=== PATIENT | female | born 1950 | race Caucasian/White ===

== ENCOUNTER → 2017-08-19 10:54 | Outpatient (CLI) | payer BC, SELFPAY ==
--- NOTE | 2017-08-19 10:57 | HPBI_ITS ---
MAMMOGRAPHY - BILATERAL SCREENING REASON FOR EXAM: Female, 67 years old. Routine annual screening examination. PERTINENT HISTORY: Non-contributory. TECHNIQUE: Digital bilateral breast janey (3D mammographic acquisition) in the CC and MLO projections. 2-D mediolateral oblique (MLO) and craniocaudad (CC) views of both breasts were obtained. CAD: Full Field Digital Mammography with Computer Added Detection was performed. COMPARISON: Comparison is made with prior outside examination dated March 09, 2016. FINDINGS: Breast Composition: There are scattered areas of fibroglandular density. There are no dominant masses or suspicious calcifications. Stable appearance of the bilateral axillary lymph nodes. No other significant abnormalities are identified. There has been no significant change since the prior study. HPBI/SCREENING MAMM (CAD), BILAT IMPRESSION: Stable bilateral screening mammogram. Yearly follow-up mammogram recommended. (A) ASSESSMENT CATEGORY: BIRADS Category 2: Benign. A letter regarding these results will be sent to the patient by the facility within 30 days. Approximately 10% of breast cancers are not detected by mammography. A normal mammogram should not delay biopsy of a clinically suspicious abnormality. [id number] Electronically Signed: Kofi Santana MD at 12:37 EST Tel [phone], Service support ,
== END ==
PROVIDERS: Family Provider Internal Medicine; PCP Internal Medicine; Visit Provider Internal Medicine
DX: Z12.31 Encounter for screening mammogram for malignant neoplasm of breast (principal)
CPT/HCPCS: 77063; 77067

== ENCOUNTER → 2017-10-20 13:42 | Outpatient (CLI) | payer BC, SELFPAY ==
--- NOTE | 2017-10-20 13:45 | RAD_ITS ---
STUDY: X-RAY - RIGHT KNEE REASON FOR EXAM: Female, 67 years old. Hip and knee pain TECHNIQUE: 4 weightbearing view(s) of the knee. COMPARISON: None. FINDINGS: Normal visualized distal femur. Normal visualized proximal tibia and fibula. Normal proximal tibiofibular articulation. Spurring along the tibial spine and left medial femoral notch. There is mild degenerative arthrosis of the medial femorotibial compartment. There is moderate degenerative arthrosis of the lateral femorotibial compartment with moderate joint space narrowing. There is mild degenerative arthrosis of the patellofemoral articulation. There is a soft tissue prominence in the suprapatellar region suggesting a small volume joint effusion. The soft tissue structures are unremarkable. RAD/Knee 4 or More Views IMPRESSION: Tricompartmental degenerative changes most pronounced lateral femoral tibial compartment. Mild effusion. Electronically Signed: Amada Mejia MD at 7:41 EDT , Service support ,
--- NOTE | 2017-10-20 13:45 | RAD_ITS ---
STUDY: X-RAY - PELVIS AND RIGHT HIP REASON FOR EXAM: Female, 67 years old. Knee and hip pain TECHNIQUE: Radiological exam, hip, unilateral, with pelvis when performed; 2 or 3 views. COMPARISON: None. FINDINGS: There is a non-specific bowel gas pattern. There are multiple calcified phleboliths. There is mild narrowing with cortical sclerosis and osteophyte formation of the sacroiliac joint consistent with degenerative osteoarthritic changes. Normal bilateral superior and inferior pubic rami. There are mild degenerative changes of the pubic symphysis with articular narrowing and sclerosis. Normal bilateral ischial tuberosities. Normal visualized femoral head. Normal acetabulum. There is mild articular joint space narrowing of the hip. RAD/Hip 2-3 Views with Pelvis IMPRESSION: Mild degenerative changes. Electronically Signed: Amada Mejia MD at 7:47 EDT , Service support ,
== END ==
PROVIDERS: Family Provider Internal Medicine; PCP Internal Medicine; Visit Provider Internal Medicine
DX: M25.551 Pain in right hip (principal); M25.561 Pain in right knee; G89.29 Other chronic pain
CPT/HCPCS: 73502; 73564

== ENCOUNTER 2017-12-05 12:00 | Outpatient (RCR) | payer BC, SELFPAY ==
--- NOTE | 2017-10-24 08:51 | HP.PTEVAL_ITS ---
Patient's Visit Information ANTONELLA DILLON is a 67 year old F referred to Physical Therapy by Vy Bland with a diagnosis of R hip pain, R knee pain. Date of Evaluation: 10/21/17 Physical Therapist: Max Crouch - Visit Plan Frequency: 2x /Week Duration: 4 Weeks Plan: Start with HS stretching, Hip flexor stretching, piriformis stretching, quad activitation- progressing to strengthening. Strengthen glute med and hip ER to reduce tibial IR positioning. May use modalities to reduce symptoms. - Subjective Subjective: Pt. is here today for her initial evaluation with diagnosis of R hip and knee pain. Pt. reports her symptoms today are better than they have been. Pt. reports having increased pain with walking, stairs, kneeling, exercise. Pt. has decreased pain with sitting. Pt. is no longer having much hip pain. Pt. denies numbness or tingling. She reports that her leg does not give out on her either. Pt. reports increased difficulty with playing with her grandchildren as well. Pt. does have increased difficutly sleeping and will wake her up at night. She did have recent xray of hip and knee, mild degenerative changes in hip, but had degenerative chagnes in all 3 compartments of R knee (lateral tibial femoral being worse, moderate changes). Pt. is hopeful to reduce symptoms to get back to recreational walking and playing with grandchildren with increased tolerance. - Pain R knee Pain Intensity (Out of 10): 2 Pain Intensity Range: 1, 6 R hip Pain Intensity (Out of 10): 0 Pain Intensity Range: 0, 4 - Objective POSTURE: Pt. has normal iliac crest height bilaterally. Pt. has increased R knee valgus positioning. Pt. has bilateral tibial IR as well. PALPATION: Pt. has mild pain with palpation of R greater trochanter and TFL/glute med regions. Pt. has worse pain at lateral anterior joint line of knee and posterior popliteal fossa as well. NEUROLOGICAL: Pt. has normal sensation to light and sharp touch bilaterally. Pt. has 2+ achilles and patellar DTR bilaterally. Pt. has no visible weakness or LOB with heel/toe raises. ROM: R knee 0-3-128deg mild icnrease NW with ext + overpress and knee flexion + over pressure. R hip- flexion 120deg, abd 445deg, ext 10deg increase hip flexor stretch, ER 45deg stretch, IR 30deg. L hip/knee all with in normal ROM withotu sumptoms. MMT: RLE- ankle 5/5 throughout; knee- ext 4+/5 increase NW, flexion 4+/5 increase NW ; hip- flexion 4+/5 NE, abd 4/5 NE, ext 4/5 NE. LLE- ankle/knee 5/5 throughout NE; hip- flexion 4+/5 NE, abd 4/5 NE, ext 4/5 NE. GAIT: Pt. ambulates with decreased step length bilatearlly. Pt. has normal initial contact, but swing phase and reduced R knee flexion with increased hip circumduction. Pt. has increased R knee valgus positioning during stance phase as well. STAIRS: Increased pain with R load, worse with descending. Pt. prefers to complete step to pattern with loading LLE only. - Special Tests R Hip Scour: Negative R Hip YOGI - Intraarticular Pathology: Negative R Hip FADDIR - Labrum: Negative R Hip Vipul - IT Band: Negative R Knee Segundo - Meniscus: Positive R Knee Disco Test - Meniscus: Positive R Knee Uvaldo - ACL: Negative R Knee Posterior Drawer - PCL: Negative R Knee Valgus - MCL: Negative R Knee Varus - LCL: Negative R Knee Patellar Apprehension - PFS: Negative R Knee Patellar Grind - PFS: Negative R Knee Medial Patellar Plica - Plica Syndrome: Negative - Goals Goal 1:: Pt. to be I with HEP. Goal Time Frame: 4-6 Weeks Goal 2:: Pt. to have increased HS and hip flexor length by 25% to reduce stress at hip and knee. Goal Time Frame: 4-6 Weeks Goal 3:: Pt. to ambulate with normalized gait pattern with 0-2/10 pain allowing for increased quality of life. Goal Time Frame: 4-6 Weeks Goal 4:: Pt. to negotiate steps with 1 HR with reciprocal pattern with 0-2/10 pain allowing for increased independence in home and community. Goal Time Frame: 4-6 Weeks Goal 5:: Pt. to have increased RLE strength by 1/2 grade of effected musculature to reduce stress applied to R knee with all functional moblity. Goal Time Frame: 4-6 Weeks Goal 6:: Pt. to sleep throughout the night with 0-2/10 pain allowing for increased quality of life. Goal Time Frame: 4-6 Weeks - Rehabilitation Potential Physical Therapy Diagnosis: Pt. has signs and symptoms consistent with R knee pain that is effecting her mobility causing antalgic gait patterns. Her hip symptoms appear to be caused by this gait abnormalities. Pt. has a greater R knee valgus positioning that increases with stance phase and stairs. Pt. most likely has OA throughout her knee, but can not completely rule on lateral degenerative meniscal tear at this point in time. Pt. would benefit from Pt to increased RLE strength, RLE ROM and progress tolerance to all functional mobility. Rehabilitation Potential: Fair - Anticipated Interventions Patient/Client Instruction: Educate patient on: Condition, Plan of Care, Risk Factors, Benefits of Fitness Program For the Purpose of:: To foster healthy habits, To improve decision making, To facilitate caregiver knowledge, To improve self management, To prevent re-injury , To improve ability to perform tasks related to life management, To improve tolerance to ADL's Therapeutic Exercise to Include: Strength training, Power training, Endurance training, Balance training, Postural training, Flexibilty training, Passive ROM , Active ROM, Dynamic Lumbar Stabilization For the Purpose of:: To decrease pain, To decrease swelling/inflammation, To increase ROM, To improve nutrient delivery to tissue, To increase oxygenation perfusion, To improve muscle performance and motor function, To improve health of tissue, To decrease soft tissue restriction, To increase flexibility/ROM, To improve endurance, To improve balance Manual Therapy Techniques to Include: Mobilization, Passive ROM, Functional dry needling, Soft tissue mobilization For the Purpose of:: To decrease pain, To decrease swelling/inflammation, To increase ROM, To improve nutrient delivery to tissue, To increase oxygenation perfusion, To improve muscle performance and motor function, To improve health of tissue, To decrease soft tissue restriction, To increase flexibility/ROM IF ES: Yes Cryotherapy (ice pack, ice massage): Yes Ultrasound (thermal/non thermal): Yes For the Purpose of:: To decrease pain, To decrease swelling/inflammation, To increase ROM, To improve nutrient delivery to tissue, To increase oxygenation perfusion, To improve muscle performance and motor function Thank you for the opportunity to evaluate your patient. For Medicare and Medicare HMO plans, please review the plan of care and approve it. It will need to be FAXED BACK to us at [phone] for Medicare purposes. Please let me know if there are questions or concerns regarding this plan of care. Physician Signature: Date:
--- NOTE | 2017-12-05 12:00 | DT_ITS ---
This patient was seen during an EMR downtime December 05, 2017 - December 12, 2017. This patient may have a combination of paper and electronic documentation or all paper documentation. All documentation is viewable within the e-chart portion of [facility] for each patient visit.
--- NOTE | 2017-12-26 14:26 | HP.PTDCSUM_ITS ---
HP - PT D/C Summary It has been my pleasure to treat ANTONELLA DILLON under orders from Vy Bland , for the diagnosis of R hip pain, R knee pain for a total of 7 visit(s). Discharge Date: 12/07/17 Please see the following information for a summary of their discharge status. - Subjective Subjective: Pt. reports beign 80% better overall. She still has good days and some sore days. She is HEP compliant. No pain currently. - Pain R knee Pain Intensity (Out of 10): 0 R hip Pain Intensity (Out of 10): 0 Lumbar spine Pain Intensity (Out of 10): 0 - Overall Improvement % Improvement: 80 - Objective Objective/Function: Pt. continues to present with increased R hip IR and R knee valgus with standing and ambulation. ROM- R hip- with in full motion no increase in symptoms. R knee- 0-0-130deg no pain. MMT- R ankle 5/5 throughout; knee- ext 5/5, flexion 5-/5; hip- flexion 4+/5, abd 4+/5, ext 4+/5. Stairs- reciprocal pattern no issues. Due to electronic downtime procedure, the information from December 05 through the December 11 was electronically scanned into the medical record. - Goals Goal 1:: Pt. to be I with HEP. Goal 2:: Pt. to have increased HS and hip flexor length by 25% to reduce stress at hip and knee. Goal 3:: Pt. to ambulate with normalized gait pattern with 0-2/10 pain allowing for increased quality of life. Goal 4:: Pt. to negotiate steps with 1 HR with reciprocal pattern with 0-2/10 pain allowing for increased independence in home and community. Goal 5:: Pt. to have increased RLE strength by 1/2 grade of effected musculature to reduce stress applied to R knee with all functional moblity. Goal 6:: Pt. to sleep throughout the night with 0-2/10 pain allowing for increased quality of life. - Plan Plan: Pt. will be DC to HEP at this point in time. - D/C Information Discharge Comments: Pt. was treated with ROM, stretching and strengthening. PT. has progressed well with PT. PT. has overall decreased symptoms, but does have days where it still bothers her. Pt. has increased R hip IR and valgus formations, that worsen with standing and gait. Pt. is independent with her HEP and will be DC to her HEP this date. If there are questions or concerns regarding this patient's physical therapy, please feel free to call me at [phone]. Thank you for the referral of this patient. Sincerely, Max Crouch
== END 2017-12-05 19:00 | disposition home or self-care (01) ==
LOC: PT 12:00
PROVIDERS: Family Provider Internal Medicine; PCP Internal Medicine; Visit Provider Internal Medicine
DX: M25.551 Pain in right hip (principal); M25.561 Pain in right knee; M70.51 Other bursitis of knee, right knee
CPT/HCPCS: 97110; 97162

== ENCOUNTER → 2018-06-21 16:14 | Outpatient (CLI) | payer BC, SELFPAY | PROVIDERS: Family Provider Internal Medicine; PCP Internal Medicine; Referring Provider Internal Medicine Gastroenterology; Visit Provider Internal Medicine Gastroenterology | DX: K51.90 Ulcerative colitis, unspecified, without complications (principal); K58.0 Irritable bowel syndrome with diarrhea | CPT/HCPCS: 87177; 87209 ==

== ENCOUNTER → 2018-09-15 12:02 | Outpatient (CLI) | payer BC, SELFPAY ==
--- NOTE | 2018-09-15 12:05 | BI_ITS ---
MAMMOGRAPHY - BILATERAL SCREENING REASON FOR EXAM: Female, 68 years old. Routine annual screening examination. PERTINENT HISTORY: Non-contributory. TECHNIQUE: Digital bilateral breast janey (3D mammographic acquisition) in the CC and MLO projections. 2-D mediolateral oblique (MLO) and craniocaudad (CC) views of both breasts were obtained. CAD: Full Field Digital Mammography with Computer Added Detection was performed. COMPARISON: Comparison is made with prior study dated August 19, 2017. FINDINGS: Breast Composition: There are scattered areas of fibroglandular density. There are no dominant masses or suspicious calcifications. There is a 6.4 mm x 5.5 mm well-defined nodule in the slightly inferior medial portion of the left breast. This most likely represents a small cyst. Correlation with ultrasound is recommended. Stable fat-containing bilateral axillary lymph nodes. No other significant abnormalities are identified. BI/SCREENING MAMM (CAD), BILAT IMPRESSION: 6.4 mm x 5.5 mm well-defined nodule in the slightly inferior medial portion of the left breast as described. Correlation with ultrasound is recommended. ASSESSMENT CATEGORY: BIRADS Category 0: Incomplete. Need additional imaging evaluation. A letter regarding these results will be sent to the patient by the facility within 30 days. Approximately 10% of breast cancers are not detected by mammography. A normal mammogram should not delay biopsy of a clinically suspicious abnormality. [id number] Electronically Signed: Kofi Santana, at 14:17 EDT , Service support ,
[2018-09-15 13:42] LABS: Hematocrit 45.2 % (37-47); Hemoglobin 14.4 g/dl (12.0-15.0); Mean Corp Hgb Conc 31.9 g/gl (32-36); Mean Corpuscular Volume 87.9 fL (81-99); Mean Platelet Vol. 9.7 fl (6.2-12.0); Platelet Count 245 K/mm3 (150-450); RBC Distribution Width CV 12.8 % (11.6-14.6); RBC Distribution Width SD 40.9 fl (35.1-43.9); Red Blood Count 5.14 M/mm3 (4.2-5.4); White Blood Count 7.8 K/mm3 (4.4-11.0)
[2018-09-15 13:43] LABS: Scan Indicated on CBC? Y/N NO
[2018-09-15 14:05] LABS: CRP 9.62 mg/L (0.0-3.0)
== END ==
PROVIDERS: Internal Medicine Gastroenterology; Family Provider Internal Medicine; PCP Internal Medicine; Referring Provider Internal Medicine; Visit Provider Internal Medicine
DX: K52.9 Noninfective gastroenteritis and colitis, unspecified (principal); Z12.31 Encounter for screening mammogram for malignant neoplasm of breast
CPT/HCPCS: 36415; 77063; 77067; 85027; 86140

== ENCOUNTER → 2018-09-26 10:02 | Outpatient (CLI) | payer BC, SELFPAY ==
--- NOTE | 2018-09-26 10:08 | US_ITS ---
STUDY: ULTRASOUND BREAST - LEFT REASON FOR EXAM: Female, 68 years old. Abnormal screening mammogram. TECHNIQUE: Axial and longitudinal images of the LEFT breast were performed with a high resolution ultrasound transducer. COMPARISON: Comparison is made with prior mammogram dated September 15, 2018. FINDINGS: LEFT Breast: The mammographic abnormality corresponds to a 5 mm x 4 mm x 4 mm solid/cystic nodule at the 9:00 position of the breast at 7 cm from nipple. A biopsy is recommended for further evaluation. US/Breast Limited Unilateral IMPRESSION: 5 mm x 4 mm x 4 mm well-defined solid/cystic nodule at the 9:00 position of the left breast at the 7:00 position. A biopsy is recommended for further evaluation. ASSESSMENT CATEGORY: BIRADS Category 4: Suspicious - Biopsy Should Be Considered. A letter regarding these results will be sent to the patient by the facility within 30 days. Electronically Signed: Kofi Santana, at 14:02 EDT , Service support ,
== END ==
PROVIDERS: Family Provider Internal Medicine; PCP Internal Medicine; Referring Provider Internal Medicine; Visit Provider Internal Medicine
DX: R92.8 Other abnormal and inconclusive findings on diagnostic imaging of breast (principal)
CPT/HCPCS: 76642

== ENCOUNTER → 2018-10-24 | Outpatient (CLI) | payer BC, SELFPAY ==
[2018-10-24 13:59] VITALS: BMI 38.7
--- NOTE | 2018-10-24 14:15 | BRBX_PTH ---
PATIENT: ANTONELLA DILLON LOC: [facility] U#:[id number] AGE/SX: 68/F ROOM: RE10/24/[address]: Dr. Shon Parra MD : [id number] BED: DIS: 10/24/2018 SPEC #: [id number] RECD: 10/24/18 15:12 STATUS: SAM JANICE #: [id number] WILL: 10/24/18 14:[address]: Shon Parra DEPT: SURGICAL PATHOLOGY RECD BY: Christiano Corcoran ENTERED: 10/25/18 12:59 SP TYPE: BREAST BX OTHR DR: Dr. Vy Bland, Tissues: Left breast, NOS Procedures: Surgery Specimen Level IV HEADER OPERATION: Left breast biopsy PRE-OP DIAGNOSIS: Abnormal ultrasound left breast TISSUE SUBMITTED: Left breast tissue FIXATION TIME: 29.5 hours MICROSCOPIC DIAGNOSIS Left breast, core biopsy: Fibrocystic changes. Negative for atypia or malignancy. SJ:toro 10/26/18 COMMENT Correlation with clinical, radiologic findings and appropriate follow up are necessary. MICROSCOPIC DESCRIPTION Slides are reviewed. GROSS DESCRIPTION Received in fixative is one container labeled with the patient's name and designated left breast. The specimen consists of multiple elongated fragments of kilgore-yellow fibroadipose tissue that in aggregate measure 1 x 0.4 x 0.1 cm. The entire specimen is submitted in one cassette. / KRISTIN:toro 10/25/18 TC:5 CPT: 42191
== END | disposition home or self-care (01) ==
LOC: LABSPEC 15:50
PROVIDERS: Family Provider Internal Medicine; PCP Internal Medicine; Referring Provider Surgery; Visit Provider Surgery
DX: R92.8 Other abnormal and inconclusive findings on diagnostic imaging of breast (principal)
CPT/HCPCS: 88305

== ENCOUNTER → 2019-04-19 | Outpatient (CLI) | payer BC, SELFPAY ==
[2018-10-24 13:59] VITALS: BMI 38.7
--- NOTE | 2019-04-19 12:15 | RAD_ITS ---
STUDY: X-RAY - RIGHT WRIST REASON FOR EXAM: Female, 69 years old. Pain, stiffness TECHNIQUE: 4 view(s) of the wrist were obtained. COMPARISON: None. FINDINGS: Normal visualized distal radius and ulna. Normal radiocarpal articulation. Normal distal radioulnar articulation. Normal carpal bones. Normal carpal articulations. There is degenerative arthrosis of the carpometacarpal articulation of the thumb, along with periarticular calcifications and subluxation.. Normal second through fifth carpometacarpal articulations. Normal visualized metacarpal bones. The soft tissue structures are unremarkable. 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 No acute fracture or suspicious osseous lesion Electronically Signed: Júnior Mata MD at 13:09 EDT , Service support ,
== END | disposition home or self-care (01) ==
LOC: HPRAD 12:12
PROVIDERS: Family Provider Internal Medicine; PCP Internal Medicine; Referring Provider Internal Medicine; Visit Provider Internal Medicine
DX: M25.531 Pain in right wrist (principal)
CPT/HCPCS: 73110

== ENCOUNTER → 2019-04-30 | Outpatient (CLI) | payer BC, SELFPAY ==
[2018-10-24 13:59] VITALS: BMI 38.7
[2019-04-30 10:02] LABS: Absolute Lymphocyte Count 1.18 X10^3/uL (0.83-4.51); Absolute Neutrophil Count 3.3 X10^3/uL (2.0-7.7); Basophil# 0.05 X10^3/uL; Eosinophils% 3.9 % (0-5); Hematocrit 44.1 % (37-47); Hemoglobin 14.2 g/dL (12.0-15.0); Lymphocyte # 1.18 X10^3/ul (4.0); Mean Corp Hgb Conc 32.2 g/dL (32-36); Mean Corpuscular Hgb 28.3 pg (27.0-32.0); Mean Corpuscular Volume 87.8 fL (81-99); Mean Platelet Vol. 9.7 fl (6.2-12.0); Monocyte# 0.44 X10^3/uL; Monocyte% 8.6 % (0-10); NRBC Flagged by Analyzer 0 % (0-5); Neutrophil # 3.26 X10^3/uL (2.7-7.7); Neutrophil % 63.3 % (47-70); Platelet Count 207 K/mm3 (150-450); RBC Distribution Width SD 41.2 fl (35.1-43.9); Red Blood Count 5.02 M/mm3 (4.2-5.4); White Blood Count 5.1 K/mm3 (4.4-11.0)
[2019-04-30 10:21] LABS: Vitamin D,25 Hydroxy 81.9 ng/mL (29.95-100.01)
[2019-04-30 10:25] LABS: Hemoglobin A1c 6.4 % (4.2-6.3); Microalbumin,Random Urine 20.9 mg/L (NO RANGE EST.); Microalbumin:Creatinine Ratio 7.2 mg/g CRE (<30 mg/g CRE)
[2019-04-30 10:40] LABS: ALB/GLOB Ratio 1.1 RATIO (0.9-2.4); AST(SGOT) 18 U/L (15-37); Alanine Aminotransfer ALT/SGPT 24 U/L (13-56); Albumin, Serum 3.8 g/dL (3.2-5.0); Alkaline Phosphatase 88 U/L (45-117); Anion Gap 5 (5-15); BUN 16 mg/dL (7-18); Calcium,Total 8.8 mg/dL (8.5-10.1); Chloride 104 mmol/L (98-107); Creatinine, Serum 0.89 mg/dL (0.55-1.02); EST Glomerular Filtration Rate 67 mL/min (>60); Est Glom Filt Rate - Afr Amer 81 mL/min (>60); Globulin 3.4 g/dL (2.2-4.2); Glucose 141 mg/dL (74-106); Potassium 4.4 mmol/L (3.5-5.1); Protein, Total 7.2 g/dL (6.4-8.2); Sodium Level 137 mmol/L (136-145); Thyroid Stim Hormone (TSH) 1.49 uIU/mL (0.358-3.74)
== END | disposition home or self-care (01) ==
LOC: MTLAB 08:25
PROVIDERS: Family Provider Internal Medicine; PCP Internal Medicine; Referring Provider Internal Medicine; Visit Provider Internal Medicine
DX: E55.9 Vitamin D deficiency, unspecified (principal); E88.81 Metabolic syndrome and other insulin resistance
CPT/HCPCS: 36415; 80053; 82043; 82306; 82570; 83036; 84443; 85025

== ENCOUNTER → 2019-09-18 | Outpatient (CLI) | payer BC, SELFPAY ==
[2018-10-24 13:59] VITALS: BMI 38.7
--- NOTE | 2019-09-18 11:27 | BI_ITS ---
MAMMOGRAPHY - BILATERAL SCREENING REASON FOR EXAM: Female, 69 years old. Routine annual screening examination. PERTINENT HISTORY: Non-contributory. Occasional bilateral breast tenderness. TECHNIQUE: Digital bilateral breast hetal (3D mammographic acquisition) in the CC and MLO projections. 2-D mediolateral oblique (MLO) and craniocaudad (CC) views of both breasts were obtained. CAD: Full Field Digital Mammography with Computer Added Detection was performed. COMPARISON: Comparison is made with prior examination dated September 15, 2018 and August 19, 2017. FINDINGS: Breast Composition: There are scattered areas of fibroglandular density. There are no dominant masses or suspicious calcifications. A tissue clip marker is seen and a tiny nodular density in the deep inferior medial aspect of the left breast. The nodular density has decreased in size as compared to prior study. No other significant abnormalities are identified. There has been no significant change since the prior study. BI/SCREEN MAMM (CAD) W/HETAL BILAT IMPRESSION: Stable bilateral screening mammogram. Yearly follow-up mammogram recommended. (A) ASSESSMENT CATEGORY: BIRADS Category 2: Benign. A letter regarding these results will be sent to the patient by the facility within 30 days. Approximately 10% of breast cancers are not detected by mammography. A normal mammogram should not delay biopsy of a clinically suspicious abnormality. [id number] Electronically Signed: Kofi Santana, at 14:21 EDT , Service support ,
== END | disposition home or self-care (01) ==
PROVIDERS: PCP Internal Medicine; Referring Provider Internal Medicine; Visit Provider Internal Medicine
DX: Z12.31 Encounter for screening mammogram for malignant neoplasm of breast (principal)
CPT/HCPCS: 77063; 77067

== ENCOUNTER → 2020-09-18 11:22 | Outpatient (CLI) | payer MEDICARE, BC, SELFPAY ==
[2018-10-24 13:59] VITALS: BMI 38.7
--- NOTE | 2020-09-18 11:26 | BI_ITS ---
MAMMOGRAPHY - BILATERAL SCREENING REASON FOR EXAM: Female, 70 years old. Routine annual screening examination. PERTINENT HISTORY: Non-contributory. History of prior left ultrasound-guided breast biopsy. TECHNIQUE: Digital bilateral breast hetal (3D mammographic acquisition) in the CC and MLO projections. 2-D mediolateral oblique (MLO) and craniocaudad (CC) views of both breasts were obtained. CAD: Full Field Digital Mammography with Computer Added Detection was performed. COMPARISON: Comparison is made with prior study dated 09/18/2019 and 09/15/2018. FINDINGS: Breast Composition: There are scattered areas of fibroglandular density. There are no dominant masses or suspicious calcifications. A tissue clip marker is once again seen in the deep inferior medial portion of the left breast. Stable 9.4 mm fat-containing nodule in the central lateral portion of the right breast most likely representing a small lymph node. No other significant abnormalities are identified. There has been no significant change since the prior study. BI/SCRN MAMM (CAD)W/HETAL BILAT IMPRESSION: Stable bilateral screening mammogram. Yearly follow-up mammogram recommended. (A) ASSESSMENT CATEGORY: BIRADS Category 2: Benign. A letter regarding these results will be sent to the patient by the facility within 30 days. Approximately 10% of breast cancers are not detected by mammography. A normal mammogram should not delay biopsy of a clinically suspicious abnormality. [id number] Electronically Signed: Kofi Santana MD at 12:54 EDT , Service support ,
== END ==
PROVIDERS: PCP Internal Medicine; Referring Provider Internal Medicine; Visit Provider Internal Medicine
DX: Z12.31 Encounter for screening mammogram for malignant neoplasm of breast (principal)
CPT/HCPCS: 77063; 77067

== ENCOUNTER 2020-11-27 13:06 | Observation (INO) | payer MEDICARE, BC, SELFPAY ==
[2018-10-24 13:59] VITALS: BMI 38.7
[2020-11-27] VITALS (10 sets, daily range): BP systolic 129–160; BP diastolic 63–99; PULSE 72–88; RESP 12–17; TEMP 36.6–37.4; O2SAT 95–100; BMI 39.9; BMI 41.8
--- NOTE | 2020-11-27 13:53 | EKG12_ITS ---
Test Reason : CP Blood Pressure : / mmHG Vent. Rate : 081 BPM Atrial Rate : 081 BPM P-R Int : 142 ms QRS Dur : 080 ms QT Int : 366 ms P-R-T Axes : 034 006 -03 degrees QTc Int : 425 ms Normal sinus rhythm with sinus arrhythmia Nonspecific T wave abnormality Abnormal ECG Confirmed by ALINA MOREJON, ITZEL ([id number]), editor in chief JUSTIN BROOKS ([id number]) on 11/28/2020 10:20:18 AM Referred By: SUPA Confirmed By:ITZEL FULLER MD
--- NOTE | 2020-11-27 13:56 | RAD_ITS ---
STUDY: X-RAY CHEST REASON FOR EXAM: Female, 70 years old. Chest pain, discomfort in shoulder and neck. pressure in chest. TECHNIQUE: Single AP portable view of the chest. COMPARISON: 2014 FINDINGS: EKG leads overlie the chest The lungs are clear and expanded. There is no demonstrated pleural abnormality. Normal size heart. Normal mediastinum and reed. Normal visualized pulmonary arteries. Normal visualized aortic arch and descending thoracic aorta. There are diffuse degenerative changes of the visualized thoracic spine. Normal visualized ribs, clavicles, and shoulders. There is no demonstrated abnormality of the visualized soft tissue structures of the upper abdomen. RAD/Chest 1 View (Portable) IMPRESSION: No acute pulmonary process Electronically Signed: Júnior Mata MD at 14:18 EDT , Service support ,
[2020-11-27] MEDS: Aspirin 81 MG TAB.CHEW 324 MG PO (13:59)
[2020-11-27 14:00] LABS: Absolute Lymphocyte Count 1.39 X10^3/uL (0.83-4.51); Absolute Neutrophil Count 5.8 X10^3/uL (2.0-7.7); Basophil# 0.05 X10^3/uL; Basophil% 0.6 % (0-1); Eosinophil# 0.15 X10^3/uL; Eosinophils% 1.9 % (0-5); Hematocrit 44.7 % (37-47); Hemoglobin 14.3 g/dL (12.0-15.0); Lymphocyte # 1.39 X10^3/ul (0.83-4.51); Lymphocyte % 17.8 % (19-41); Mean Corpuscular Hgb 28.7 pg (27.0-32.0); Mean Corpuscular Volume 89.6 fL (81-99); Mean Platelet Vol. 9.6 fl (6.2-12.0); Monocyte# 0.44 X10^3/uL; Monocyte% 5.6 % (0-10); NRBC Flagged by Analyzer 0 % (0-5); Neutrophil # 5.75 X10^3/uL (2.7-7.7); Neutrophil % 73.6 % (47-70); Platelet Count 224 K/mm3 (150-450); RBC Distribution Width CV 12.9 % (11.6-14.6); RBC Distribution Width SD 42.4 fl (35.1-43.9); Red Blood Count 4.99 M/mm3 (4.2-5.4); White Blood Count 7.8 K/mm3 (4.4-11.0)
[2020-11-27 16:15] LABS: Anion Gap 4 (5-15); BUN 10 mg/dL (7-18); BUN/Creat Ratio 12.4 RATIO (10-20); Chloride 104 mmol/L (98-107); Creatinine, Serum 0.81 mg/dL (0.55-1.02); EST Glomerular Filtration Rate 75 mL/min (>60); Est Glom Filt Rate - Afr Amer 91 mL/min (>60); Estimated Creatinine Clearance 62.23 ml/min; Glucose 115 mg/dL (74-106); Potassium 4.6 mmol/L (3.5-5.1); Sodium Level 138 mmol/L (136-145)
--- NOTE | 2020-11-27 16:57 | ED.VIS.CHEST ---
HPI History of Present Illness Chief Complaint: Chest Pain Narrative Narrative: 70-year old who reports that she has chest pain that woke him from sleep at 2:00 in the morning. It is a continuous substernal pressure and tightness. Is nontender worsening to 10 currently. Is worsened by nothing including exertion deep breaths. Also relieved by nothing. She is taken antacids without relief. She denies any associated nausea, vomiting, diaphoresis, shortness of breath. She reports that she has been belching repeatedly. Patient states she has never had anything like this before. [facility] Medical History (Updated 11/27/20 @ 17:[address] Jeramy Grant MD) Abnormal mammogram of left breast Arthritis Blood in stool Depression Diarrhea Fatigue Hx of TIA (transient ischemic attack) and stroke Migraine Proctitis Sleep apnea Ulcerative colitis Home Medications aspirin 81 mg tablet,delayed release 81 mg PO DAILY 10/24/18 [History Last Taken 11/27/20] balsalazide 750 mg capsule 2,250 mg PO BID 10/24/18 [History Last Taken 11/26/20] dextroamphetamine 15 mg capsule,extended release 15 mg PO DAILY 10/24/18 [History Last Taken 11/27/20] biotin 5,000 mcg SUBLINGUAL DAILY 11/27/20 [History Last Taken 11/26/20] cholecalciferol (vitamin D3) [Vitamin D3] 125 mcg PO DAILY 11/27/20 [History Last Taken 11/27/20] duloxetine 60 mg PO DAILY 11/27/20 [History Last Taken 11/27/20] metformin 500 mg PO BID 11/27/20 [History Last Taken 11/26/20] Allergy/AdvReac Type Severity Reaction Status Date / Time Penicillins Allergy Rash Verified 11/27/20 13:09 Sulfa (Sulfonamide Allergy Rash Verified 11/27/20 13:09 Antibiotics) Family History Mother Arthritis Osteoporosis CVA (cerebral vascular accident) Father Arthritis Hypertension Heart disease CVA (cerebral vascular accident) Sister Arthritis Heart disease Hypertension Autoimmune disease Surgical History History of left breast biopsy (~10/2018) History of tonsillectomy and adenoidectomy Hx of appendectomy Hx of bladder repair surgery Hx of discectomy Hx of hysterectomy Hx of laparoscopy Previous back surgery Social History (Updated 10/24/18 @ 15:[address] Shon Parra MD) Smoking Status: Never smoker second hand exposure: No alcohol intake: current alcohol intake frequency: a few times a month substance use type: does not use caffeine: Yes what type of physical activity do you participate in: none frequency: does not exercise ROS ROS ED Constitutional Constitutional ED: Denies chills, fever(s) or sweats Eyes Eyes: Denies change in vision ENT ENT ED: Denies sore throat Cardiovascular Cardiovascular: Reports chest pain Respiratory/Chest Respiratory/Chest: Denies cough, dyspnea or dyspnea on exertion Gastrointestinal Gastrointestinal: Denies abdominal pain, diarrhea, melena, nausea or vomiting Genitourinary Genitourinary ED: Denies dysuria or urinary frequency Musculoskeletal Musculoskeletal: Denies myalgias Integumentary Denies rash Neurologic Neurologic: Denies headache(s), paresthesias or weakness EXAM Physical Exam Const Vital Signs: 11/27/20 13:07 11/27/20 13:59 11/27/20 14:15 Temperature 97.8 F Temperature Source Temporal Pulse Rate 88 74 Respiratory Rate 16 16 Blood Pressure 160/99 H Blood Pressure Mean 119 Pulse Ox 97 97 100 Oxygen Delivery Method Room Air Nasal Cannula Nasal Cannula Oxygen Flow Rate (L/min) 2 2 11/27/20 15:16 11/27/20 16:11 Temperature Temperature Source Pulse Rate 72 77 Respiratory Rate 14 12 Blood Pressure 137/93 H Blood Pressure Mean 107 Pulse Ox 100 98 Oxygen Delivery Method Room Air Room Air Oxygen Flow Rate (L/min) Positive well nourished and well developed General Appearance ED: well developed HEENT Reports normocephalic and head/scalp atraumatic Eyes PERRL Neck no lymphadenopathy, supple and no JVD General: Negative for tenderness Resp normal respiratory effort and clear to auscultation bilaterally Cardio regular rate, regular rhythm and no murmurs GI normal to inspection, nondistended, normoactive bowel sounds and non-tender GI Narrative: No guarding, rebound, or peritoneal signs. Palpation: soft Back/Spine Back/Spine Narrative: Nontender. Extremity General Extremety ED: Negative for edema or tenderness General Extremity: Negative for edema Neuro oriented x3, CN's II-XII intact bilaterally and no sensory deficits noted Sensorium / Orientation: alert Motor Exam: strength 5/5 throughout Psych mental status grossly normal Skin no rashes or lesions noted Heart Score History: Slightly/Non-Suspicious ECG: Nonspecific Repolarization Age: >/= 65 years Risk Factors: 1 or 2 Risk Factors Troponin: </= Normal Limit Score: 4 [facility] Lab Data Labs: Laboratory Results - last 24 hr 11/27/20 11/27/20 11/27/20 13:45 13:45 14:50 WBC 7.8 RBC 4.99 Hgb 14.3 Hct 44.7 MCV 89.6 MCH 28.7 MCHC 32.0 RDW Std Deviation 42.4 RDW Coeff of Segundo 12.9 Plt Count 224 MPV 9.6 Immature Gran % (Auto) 0.500 Neut % (Auto) 73.6 H Lymph % (Auto) 17.8 L [place] % (Auto) 5.6 Eos % (Auto) 1.9 Baso % (Auto) 0.6 Absolute Neuts (auto) 5.8 Absolute Lymphs (auto) 1.39 Nucleated RBC % 0 Sodium Cancelled Cancelled Potassium Cancelled Cancelled Chloride Cancelled Cancelled Carbon Dioxide Cancelled Cancelled Anion Gap Cancelled Cancelled BUN Cancelled Cancelled Creatinine Cancelled Cancelled Estim Creat Clear Calc Cancelled Cancelled Est GFR (MDRD) Af Amer Cancelled Cancelled Est GFR (MDRD) Non-Af Cancelled Cancelled BUN/Creatinine Ratio Cancelled Cancelled Glucose Cancelled Cancelled Calcium Cancelled Cancelled Troponin I Cancelled Cancelled 11/27/20 15:45 WBC RBC Hgb Hct MCV MCH MCHC RDW Std Deviation RDW Coeff of Segundo Plt Count MPV Immature Gran % (Auto) Neut % (Auto) Lymph % (Auto) [place] % (Auto) Eos % (Auto) Baso % (Auto) Absolute Neuts (auto) Absolute Lymphs (auto) Nucleated RBC % Sodium 138 Potassium 4.6 Chloride 104 Carbon Dioxide 30.0 Anion Gap 4 L BUN 10 Creatinine 0.81 Estim Creat Clear Calc 62.23 Est GFR (MDRD) Af Amer 91 Est GFR (MDRD) Non-Af 75 BUN/Creatinine Ratio 12.4 Glucose 115 H Calcium 9.0 Troponin I < 0.015 Radiography Diagnostic Testing: Radiology Impression Chest X-Ray 11/27/20 13:56 IMPRESSION: No acute pulmonary process Electronically Signed: Júnior Mata MD at 14:18 EDT , Service support , 1 view chest x-ray shows no acute disease. EKG Initial EKG: Attestation: I personally reviewed and interpreted this EKG as follows: Interpretation: Sinus Arrythmia and Non-Specific ST Changes Comments: EKG is sinus arrhythmia at a rate of 81. Nonspecific ST changes. There is no old EKG for comparison. Treatment and Re-Evaluation Comments:: Emergency department course: Patient was treated aspirin. She is resting comfortably. She refused pain medications. Treatment plan: Had a prolonged scratch the patient that with greater than 12 hours of constant pain and negative enzymes that I do not think this is cardiac in etiology. However, I do not have a good explanation for this. We discussed the possibility of going home versus being admitted to hospital. She and her do not feel comfortable going home. She will be discussed with the hospitalist admitted for further evaluation and treatment. This note was generated with [employer] dictation software. It may contain incorrect words, spelling, and punctuation that were not noted in review of the chart prior to signing. Discharge Plan Triage Chief Complaint: Chest Pain ED Provider: Jeramy Grant Dx/Rx/DC Orders Clinical Impression: Chest pain Primary Care Provider: Vy Bland
--- NOTE | 2020-11-27 17:23 | HP.PCM.HOS_ITS ---
Documented by User: Brayan ESCALANTE 11/27/20 17:50 HPI - General HPI Narrative Patient is a 70-year-old female who presents to the ED at [facility] on 11/27/2020 with a chief complaint of chest pain. Patient reports that at 0200 this morning she was awoken out of sleep with a crushing chest pain, patient reports that she was able to fall back asleep as the pain was mild at that time. At 0430 she reawoke out of bed with the pain at a higher intensity. Patient does not report that it is worse with exertion, however she also reports that the pain is not responsive to antacids which she has at home. Patient reports that she has never had a pain like this, which prompted her to come in for evaluation. Review of systems was negative for shortness of breath, productive cough, hemoptysis, palpitations, orthopnea, paroxysmal nocturnal dyspnea or leg pain/swelling. Past medical history is significant for diabetes, heartburn, TIA and ulcerative colitis. Temperature in the ED is mildly elevated at 99.3 ?F, other vital signs stable. CBC and BMP unremarkable. Troponins not elevated. EKG in the ED demonstrated sinus arrhythmia at a heart rate of [address] changes. Chest x-ray is normal and demonstrates no acute cardiopulmonary process. Patient was given an aspirin in the ED and refused any pain medications. Patient reports no chest pain currently. [facility] Medical History (Updated 11/27/20 @ 17:38 by Brayan ESCALANTE) Abnormal mammogram of left breast Arthritis Blood in stool Depression Diarrhea Fatigue Hx of TIA (transient ischemic attack) and stroke Migraine Proctitis Sleep apnea Ulcerative colitis Home Medications aspirin 81 mg tablet,delayed release 81 mg PO DAILY 10/24/18 [History Last Taken 11/27/20] balsalazide 750 mg capsule 2,250 mg PO BID 10/24/18 [History Last Taken 11/26/20] dextroamphetamine 15 mg capsule,extended release 15 mg PO DAILY 10/24/18 [History Last Taken 11/27/20] biotin 5,000 mcg SUBLINGUAL DAILY 11/27/20 [History Last Taken 11/26/20] cholecalciferol (vitamin D3) [Vitamin D3] 125 mcg PO DAILY 11/27/20 [History Last Taken 11/27/20] duloxetine 60 mg PO DAILY 11/27/20 [History Last Taken 11/27/20] metformin 500 mg PO BID 11/27/20 [History Last Taken 11/26/20] Allergy/AdvReac Type Severity Reaction Status Date / Time Penicillins Allergy Rash Verified 11/27/20 13:09 Sulfa (Sulfonamide Allergy Rash Verified 11/27/20 13:09 Antibiotics) Family History Mother Arthritis Osteoporosis CVA (cerebral vascular accident) Father Arthritis Hypertension Heart disease CVA (cerebral vascular accident) Sister Arthritis Heart disease Hypertension Autoimmune disease Surgical History History of left breast biopsy (~10/2018) History of tonsillectomy and adenoidectomy Hx of appendectomy Hx of bladder repair surgery Hx of discectomy Hx of hysterectomy Hx of laparoscopy Previous back surgery Social History (Updated 10/24/18 @ 15:[address] Shon Parra MD) Smoking Status: Never smoker second hand exposure: No alcohol intake: current alcohol intake frequency: a few times a month substance use type: does not use caffeine: Yes what type of physical activity do you participate in: none frequency: does not exercise ROS Constitutional Constitutional: Denies anorexia, change in weight, chills, fatigue, fever(s), malaise, night sweats, weakness or other Eyes Eyes: Denies blurry vision, change in eye color, change in vision, discharge from eye(s), double vision, erythema, eye pain, loss of vision or other ENT HEENT: Denies abnormal hearing, dysphagia, ear pain, epistaxis, headache(s), hearing loss, nasal congestion, nasal discharge, post nasal drip, sinus pressure, sore throat or other Cardiovascular Cardiovascular: Reports chest pain; Denies claudication, dyspnea on exertion, edema, lightheadedness, orthopnea, palpitations, paroxysmal nocturnal dyspnea, rapid heart rate, syncope or other Respiratory/Chest Respiratory/Chest: Denies cough, dyspnea, excessive phlegm production, hemoptysis, productive cough, shortness of breath at rest, shortness of breath with exertion, wheezing or other Gastrointestinal Gastrointestinal: Denies abdominal pain, coffee ground emesis, constipation, diarrhea, dyspepsia, hematemesis, hematochezia, loose stools, melena, nausea, vomiting or other Genitourinary Genitourinary: Denies burning urination, difficulty urinating, dysuria, hematuria, nocturia, urinary frequency, urinary hesitancy, urinary incontinence, urinary urgency or other Musculoskeletal Musculoskeletal: Denies arthralgias, back pain, joint pain, joint stiffness, joint swelling, myalgias, neck pain or other Neurologic Neurologic: Denies abnormal gait, abnormal speech, confusion, disequilibrium, dizziness, focal weakness, headache(s), numbness, paresthesias, seizure-like activity, seizures, syncope, tingling, tremor(s) or other Psychiatric Psychiatric: Denies anxiety, depression, homicidal ideation, suicidal ideation or other Endocrine Endocrinology: Denies change in body appearance, cold intolerance, excessive sweating, heat intolerance, polydipsia, polyuria or other Hematologic/Lymphatic Hematologic/Lymphatic: Denies anemia, easy bleeding, easy bruising, lymphadenopathy or other Allergic/Immunologic Allergic/Immunologic: Denies rhinitis, hives, eczemia, asthma or other Vital Signs Vital Signs Vital Signs: 11/27/20 13:07 11/27/20 13:59 11/27/20 14:15 Temperature 97.8 F Temperature Source Temporal Pulse Rate 88 74 Respiratory Rate 16 16 Blood Pressure 160/99 H Blood Pressure Mean 119 Pulse Ox 97 97 100 Oxygen Delivery Method Room Air Nasal Cannula Nasal Cannula Oxygen Flow Rate (L/min) 2 2 11/27/20 15:16 11/27/20 16:11 11/27/20 17:22 Temperature 99.3 F H Temperature Source Oral Pulse Rate 72 77 78 Respiratory Rate 14 12 17 Blood Pressure 137/93 H 129/63 H Blood Pressure Mean 107 85 Pulse Ox 100 98 97 Oxygen Delivery Method Room Air Room Air Room Air Oxygen Flow Rate (L/min) Weight Weight: 247 lb Body Mass Index (BMI) 39.9 Physical Exam Const alert and oriented x3 General Appearance: cooperative HEENT normocephalic, head/scalp atraumatic and hearing grossly normal bilaterally Eyes PERRL, EOMs intact bilaterally and conjunctivae normal Neck no lymphadenopathy, supple and no JVD Resp normal respiratory effort, no retractions, no use of accessory muscles and clear to auscultation bilaterally Cardio regular rate, regular rhythm, no murmurs and no JVD GI normal to inspection, nondistended, normoactive bowel sounds, soft to palpation, non-tender and non-distended Extremity normal to inspection, full ROM and no clubbing, cyanosis or edema Skin no rashes or lesions noted, no wounds and no jaundice Neuro CN's II-XII intact bilaterally Psych affect normal Lab / Micro Data Result Diagrams: 11/27/20 13:45 11/27/20 15:45 Labs: Laboratory Results - last 24 hr 11/27/20 11/27/20 11/27/20 13:45 13:45 14:50 WBC 7.8 RBC 4.99 Hgb 14.3 Hct 44.7 MCV 89.6 MCH 28.7 MCHC 32.0 RDW Std Deviation 42.4 RDW Coeff of Segundo 12.9 Plt Count 224 MPV 9.6 Immature Gran % (Auto) 0.500 Neut % (Auto) 73.6 H Lymph % (Auto) 17.8 L [place] % (Auto) 5.6 Eos % (Auto) 1.9 Baso % (Auto) 0.6 Absolute Neuts (auto) 5.8 Absolute Lymphs (auto) 1.39 Nucleated RBC % 0 Sodium Cancelled Cancelled Potassium Cancelled Cancelled Chloride Cancelled Cancelled Carbon Dioxide Cancelled Cancelled Anion Gap Cancelled Cancelled BUN Cancelled Cancelled Creatinine Cancelled Cancelled Estim Creat Clear Calc Cancelled Cancelled Est GFR (MDRD) Af Amer Cancelled Cancelled Est GFR (MDRD) Non-Af Cancelled Cancelled BUN/Creatinine Ratio Cancelled Cancelled Glucose Cancelled Cancelled Calcium Cancelled Cancelled Troponin I Cancelled Cancelled 11/27/20 15:45 WBC RBC Hgb Hct MCV MCH MCHC RDW Std Deviation RDW Coeff of Segundo Plt Count MPV Immature Gran % (Auto) Neut % (Auto) Lymph % (Auto) [place] % (Auto) Eos % (Auto) Baso % (Auto) Absolute Neuts (auto) Absolute Lymphs (auto) Nucleated RBC % Sodium 138 Potassium 4.6 Chloride 104 Carbon Dioxide 30.0 Anion Gap 4 L BUN 10 Creatinine 0.81 Estim Creat Clear Calc 62.23 Est GFR (MDRD) Af Amer 91 Est GFR (MDRD) Non-Af 75 BUN/Creatinine Ratio 12.4 Glucose 115 H Calcium 9.0 Troponin I < 0.015 Radiology Impression Chest X-Ray 11/27/20 13:56 IMPRESSION: No acute pulmonary process Electronically Signed: Júnior Mata MD at 14:18 EDT , Service support , Assessment & Plan Assessment/Plan (1) Chest pain: (2) Fatigue: (3) Depression: (4) Diabetes: (5) Hx of TIA (transient ischemic attack) and stroke: (6) Ulcerative colitis: PLAN: Patient is a 70-year-old female who presents to the ED at [facility] on 11/27/2020 with a chief complaint of chest pain. Patient reports a 12-hour history of ongoing chest pain that radiates to her left arm and neck and is not responsive to antacids.Review of systems was negative for shortness of breath, productive cough, hemoptysis, palpitations, orthopnea, paro xysmal nocturnal dyspnea or leg pain/swelling. Past medical history is significant for diabetes, heartburn, TIA and ulcerative colitis. Temperature in the ED is mildly elevated at 99.3 ?F, other vital signs stable. CBC and BMP unremarkable. TSH within normal limits. Troponins not elevated. EKG in the ED demonstrated sinus arrhythmia at a heart rate of [address] changes. Chest x-ray is normal and demonstrates no acute cardiopulmonary process. Patient was given an aspirin in the ED and refused any pain medications. Patient reports no chest pain currently. Do not believe that the etiology of the chest pain is cardiac, however cannot describe any other etiology either. Patient and patient's spouse would prefer that patient be admitted for evaluation. Will admit to PCU for observation. 1) Chest pain History as above. EKG unremarkable, as above. Troponins not elevated as above. Chest x-ray unremarkable as above. Plan; home baby aspirin regimen, initiate statins, nitroglycerin as needed, monitor troponins, stress test in a.m, lipid profile ordered. 2) DM2 Continue Metformin. 3) Depression Continue duloxetine. 4) history of TIA Continue aspirin. 5) Ulcerative colitis Continue balsalazide DVT prophylaxis - Lovenox VT CODE STATUS: Full code Patient seen by Brayan Hunter PA-C, under the supervision of Dr. Foss. Documented by User: Dr. Re Foss MD 11/27/20 20:18 HPI - General General Date of Admission: 11/27/20 [facility] Medical History (Updated 11/27/20 @ 17:38 by Brayan ESCALANTE) Abnormal mammogram of left breast Arthritis Blood in stool Depression Diarrhea Fatigue Hx of TIA (transient ischemic attack) and stroke Migraine Proctitis Sleep apnea Ulcerative colitis Home Medications aspirin 81 mg tablet,delayed release 81 mg PO DAILY 10/24/18 [History Last Taken 11/27/20] balsalazide 750 mg capsule 2,250 mg PO BID 10/24/18 [History Last Taken 11/26/20] dextroamphetamine 15 mg capsule,extended release 15 mg PO DAILY 10/24/18 [History Last Taken 11/27/20] biotin 5,000 mcg SUBLINGUAL DAILY 11/27/20 [History Last Taken 11/26/20] cholecalciferol (vitamin D3) [Vitamin D3] 125 mcg PO DAILY 11/27/20 [History Last Taken 11/27/20] duloxetine 60 mg PO DAILY 11/27/20 [History Last Taken 11/27/20] metformin 500 mg PO BID 11/27/20 [History Last Taken 11/26/20] Allergy/AdvReac Type Severity Reaction Status Date / Time Penicillins Allergy Rash Verified 11/27/20 13:09 Sulfa (Sulfonamide Allergy Rash Verified 11/27/20 13:09 Antibiotics) Family History Mother Arthritis Osteoporosis CVA (cerebral vascular accident) Father Arthritis Hypertension Heart disease CVA (cerebral vascular accident) Sister Arthritis Heart disease Hypertension Autoimmune disease Surgical History History of left breast biopsy (~10/2018) History of tonsillectomy and adenoidectomy Hx of appendectomy Hx of bladder repair surgery Hx of discectomy Hx of hysterectomy Hx of laparoscopy Previous back surgery Social History (Updated 10/24/18 @ 15:[address] Shon Parra MD) Smoking Status: Never smoker second hand exposure: No alcohol intake: current alcohol intake frequency: a few times a month substance use type: does not use caffeine: Yes what type of physical activity do you participate in: none frequency: does not exercise Lab / Micro Data Result Diagrams: 11/27/20 13:45 11/27/20 15:45 Addendum Addendum: This patient was seen in conjunction with BORIS Archer. I have independently interviewed and examined the patient and reviewed pertinent historical, laboratory, and other data. Please refer to BORIS Archer's note for his patient's presentation, findings, and recommendations. I have reviewed and his note and concur with his documentation 70-year-old female who presented with chest pain. Chest pain started the night before, woke her up around 2 AM. It was described as crushing or vise-like, but also burning. She had eating some German dish the night before and slept soon after. It persisted and woke her up a couple of hours later. It did not respond to antacids. It persisted until around noon and she says come to the hospital. She denied any history of heart disease. Denied any dizziness or palpitations or nausea or vomiting. Her EKG in the ED showed normal sinus rhythm, no acute ST-T changes. Chest x- ray was unremarkable. Physical Exam: Gen: Appeared relatively comfortable, not pale, not jaundiced CVS:HS I +II, regular, no murmurs RESP: CTA GI: BS present and normal, soft, nontender, no palpable organs EXT:No edema ASSESSMENT: 1. Chest pain, atypical 2. Type II DM 3. Ulcerative colitis 4. Depression 5. VERENICE/narcolepsy Plan: Continue on aspirin, nitro as needed Trend troponins Stress test in a.m. Check lipid profile Hold Metformin, blood glucose checks with insulin sliding scale Continue rest of her home medications CODE STATUS: Full code I discussed and explained in details the various types of CODE STATUS-full code, DNR CCA, DNR CC. Patient chose Full code Time spent discussing CODE STATUS 16 minutes Visit Charges OBSV E&M: 25407 Initial observation care L3
--- NOTE | 2020-11-27 17:44 | EKG12_ITS ---
Test Reason : CP ADMIT Blood Pressure : / mmHG Vent. Rate : 070 BPM Atrial Rate : 070 BPM P-R Int : 136 ms QRS Dur : 084 ms QT Int : 376 ms P-R-T Axes : 035 013 036 degrees QTc Int : 406 ms Normal sinus rhythm Normal ECG Confirmed by PARTH MOREJON, XIMENA ([id number]), graphics editor JUSTIN BROOKS ([id number]) on 12/02/2020 2:16:37 PM Referred By: DR CASTELLANOS Confirmed By:XIMENA ALBA MD
[2020-11-27 18:31] LABS: Bedside Glucose 130 mg/dL (70-110)
[2020-11-27] MEDS: Enoxaparin 120 MG/0.8 ML Syringe SC (22:25)
[2020-11-27] MEDS: Insulin Lispro 100 UNIT/ML INSULN.PEN SC (22:25)
[2020-11-27] MEDS: Atorvastatin Calcium 40 MG Tablet PO (22:25)
[2020-11-27] MEDS: 0.9% Saline Lock 10 ML Syringe IV (22:26)
[2020-11-27 22:35] LABS: Bedside Glucose 152 mg/dL (70-110)
[2020-11-28 03:53] VITALS: PULSE 73
[2020-11-28 04:30] VITALS: BP 125/80; PULSE 67; RESP 16; TEMP 36.5; O2SAT 94
[2020-11-28 05:37] LABS: Absolute Lymphocyte Count 1.39 X10^3/uL (0.83-4.51); Absolute Neutrophil Count 3.7 X10^3/uL (2.0-7.7); Basophil# 0.06 X10^3/uL; Eosinophil# 0.19 X10^3/uL; Eosinophils% 3.3 % (0-5); Hematocrit 42.9 % (37-47); Hemoglobin 13.6 g/dL (12.0-15.0); Lymphocyte # 1.39 X10^3/ul (0.83-4.51); Lymphocyte % 23.8 % (19-41); Mean Corp Hgb Conc 31.7 g/dL (32-36); Mean Corpuscular Hgb 28.6 pg (27.0-32.0); Mean Corpuscular Volume 90.3 fL (81-99); Mean Platelet Vol. 9.6 fl (6.2-12.0); Monocyte# 0.49 X10^3/uL; Monocyte% 8.4 % (0-10); NRBC Flagged by Analyzer 0 % (0-5); Neutrophil # 3.68 X10^3/uL (2.7-7.7); Platelet Count 215 K/mm3 (150-450); RBC Distribution Width CV 12.8 % (11.6-14.6); RBC Distribution Width SD 42.5 fl (35.1-43.9); Red Blood Count 4.75 M/mm3 (4.2-5.4); White Blood Count 5.8 K/mm3 (4.4-11.0)
[2020-11-28] MEDS: Aspirin E.C. 81 MG Tablet PO (06:06)
[2020-11-28 06:09] LABS: ALB/GLOB Ratio 1.2 RATIO (0.9-2.4); AST(SGOT) 16 U/L (15-37); Alanine Aminotransfer ALT/SGPT 20 U/L (13-56); Albumin, Serum 3.4 g/dL (3.2-5.0); Alkaline Phosphatase 87 U/L (45-117); Anion Gap 6 (5-15); BUN 10 mg/dL (7-18); BUN/Creat Ratio 12.8 RATIO (10-20); Calcium,Total 8.5 mg/dL (8.5-10.1); Chloride 105 mmol/L (98-107); Cholesterol 177 mg/dL (200); Creatinine, Serum 0.78 mg/dL (0.55-1.02); EST Glomerular Filtration Rate 78 mL/min (>60); Est Glom Filt Rate - Afr Amer 94 mL/min (>60); Estimated Creatinine Clearance 50.41 ml/min; Globulin 2.9 g/dL (2.2-4.2); Glucose 153 mg/dL (74-106); High Density Lipoprotein 35 mg/dL; Potassium 4.2 mmol/L (3.5-5.1); Protein, Total 6.3 g/dL (6.4-8.2); Sodium Level 139 mmol/L (136-145); Triglycerides 288 mg/dL; Very Low Density Lipoprotein 58 mg/dL (5-40)
[2020-11-28 06:13] VITALS: BP 139/86; PULSE 68; RESP 14; TEMP 36.4; O2SAT 93
[2020-11-28 06:36] LABS: Bedside Glucose 153 mg/dL (70-110)
[2020-11-28 07:10] VITALS: PULSE 82
[2020-11-28 10:14] VITALS: BP 159/69; PULSE 71; RESP 12; TEMP 36.6; O2SAT 94
--- NOTE | 2020-11-28 10:16 | PCM.DC ---
Discharge Instructions Diet Discharge Diet: No restrictions Activity Discharge Activity: Return to Normal Activity Follow Up Care Please Follow Up With: Primary care provider When: Within the next two weeks. Test Results: Test results from this visit will be discussed in further detail at your follow-up appointment, if applicable. Discharge Plan Admission Admit Date/Time: 11/27/20 17:03 Primary Reason for Your Visit: Chest pain Attending Provider: Mikie Peña Primary Care Provider: Vy Bland Instructions Patient Instructions: ED Chest Pain, Noncardiac Discharge Orders/Prescriptions Prescriptions: New pantoprazole [Protonix] 20 mg tablet,delayed release (DR/EC) 20 mg PO DAILY Qty: 30 RF: 0 Continued aspirin [Adult Low Dose Aspirin] 81 mg tablet,delayed release (DR/EC) 81 mg PO DAILY RF: 0 dextroamphetamine 15 mg capsule, extended release 15 mg PO DAILY RF: 0 balsalazide 750 mg capsule 2,250 mg PO BID RF: 0 metformin 500 mg tablet 500 mg PO BID RF: 0 cholecalciferol (vitamin D3) [Vitamin D3] 125 mcg (5,000 unit) Tablet 125 mcg PO DAILY RF: 0 duloxetine 60 mg capsule,delayed release(DR/EC) 60 mg PO DAILY RF: 0 biotin 5,000 mcg Tablet, Sublingual 5,000 mcg SUBLINGUAL DAILY RF: 0 Referrals / Follow Up: Vy Bland DO [Primary Care Provider] - Disposition Disposition (needs filled in before D/C Order can be placed): Home, self care
[2020-11-28] MEDS: Acetaminophen 325 MG Tablet 650 MG PO (10:21)
[2020-11-28] MEDS: DULoxetine Hcl 60 MG Capsule PO (10:22)
[2020-11-28] MEDS: 0.9% Saline Lock 10 ML Syringe IV (10:26)
[2020-11-28 12:18] VITALS: PULSE 66
--- NOTE | 2020-11-28 14:03 | PHA.DC.MR ---
Pharmacy Service has performed discharge medication reconciliation for this patient. No new medications at time of discharge review. Medications reviewed are from previously reported home medications. Home Medications aspirin 81 mg tablet,delayed release 81 mg PO DAILY 10/24/18 balsalazide 750 mg capsule 2,250 mg PO BID 10/24/18 dextroamphetamine 15 mg capsule,extended release 15 mg PO DAILY 10/24/18 biotin 5,000 mcg SUBLINGUAL DAILY 11/27/20 cholecalciferol (vitamin D3) [Vitamin D3] 125 mcg PO DAILY 11/27/20 duloxetine 60 mg PO DAILY 11/27/20 metformin 500 mg PO BID 11/27/20 The patient's discharge medication list was reviewed for discrepancies and discrepancies were resolved.
--- NOTE | 2020-11-28 14:15 | DS.PCM_ITS ---
Documented by User: Brayan ESCALANTE 11/28/20 15:27 Providers Date of Admission: 11/27/20 Primary Care Physician: Dr. Vy Bland DO Reason For Visit: CHEST PAIN Diagnosis Discharge Diagnosis (1) Chest pain: Status: Acute Code(s): R07.9 - Chest pain, unspecified (2) Fatigue: Status: Acute Code(s): R53.83 - Other fatigue (3) Depression: Status: Chronic Code(s): F32.9 - Major depressive disorder, single episode, unspecified (4) Diabetes: Status: Acute Code(s): E11.9 - Type 2 diabetes mellitus without complications (5) Hx of TIA (transient ischemic attack) and stroke: Status: Acute Code(s): Z86.73 - Personal history of transient ischemic attack (TIA), and cerebral infarction without residual deficits (6) Ulcerative colitis: Status: Chronic Code(s): K51.90 - Ulcerative colitis, unspecified, without complications Medications at Discharge Home Medications aspirin 81 mg tablet,delayed release 81 mg PO DAILY 10/24/18 balsalazide 750 mg capsule 2,250 mg PO BID 10/24/18 dextroamphetamine 15 mg capsule,extended release 15 mg PO DAILY 10/24/18 biotin 5,000 mcg SUBLINGUAL DAILY 11/27/20 cholecalciferol (vitamin D3) [Vitamin D3] 125 mcg PO DAILY 11/27/20 duloxetine 60 mg PO DAILY 11/27/20 metformin 500 mg PO BID 11/27/20 pantoprazole [Protonix] 20 mg PO DAILY #30 tab 11/28/20 Hospital Course Summary of Care Provided Minutes Spent on Discharge: 35 Hospital Course: 1) Chest pain History as above. EKG unremarkable, no evidence of ischemic changes. Troponins not elevated as above. Chest x-ray unremarkable as above. Lipid panel within normal limits. Stress test demonstrates no evidence of ischemic change and shows normal myocardial perfusion. Given lack of evidence for cardiac etiology, believe patients symptoms may be related to indigestion. Plan; Protonix 20 mg p.o. daily initiated discharge, follow-up with primary care provider within the next 2 weeks, continue aspirin. 2) DM2 Continue Metformin. 3) Depression Continue duloxetine. 4) history of TIA Continue aspirin. 5) Ulcerative colitis Continue balsalazide Patient seen by Brayan Hunter PA-C, under the supervision of Dr. Peña. Physical Exam Narrative Patient is a pleasant 70-year-old female comfortably resting in bed, alert and oriented x3. Patient denies any change or progression in symptoms from yesterday. Denies chest pain, shortness of breath, hemoptysis, palpitations, fever, chills, N/V/D. Const alert, oriented x3 and no apparent distress HEENT normocephalic, head/scalp atraumatic and hearing grossly normal bilaterally Eyes PERRL, EOMs intact bilaterally and conjunctivae normal Neck no lymphadenopathy, supple and no JVD Resp normal respiratory effort, no retractions, no use of accessory muscles and clear to auscultation bilaterally Cardio regular rate, regular rhythm, no murmurs and no JVD GI normal to inspection, nondistended, normoactive bowel sounds, soft to palpation, non-tender and non-distended Extremity normal to inspection, full ROM and no clubbing, cyanosis or edema Skin no rashes or lesions noted, no wounds and skin turgor normal Neuro CN's II-XII intact bilaterally Psych affect normal ABG / Lab / Microbiology Data Result Diagrams: 11/28/20 05:24 11/28/20 05:24 Laboratory: Laboratory Results - last 24 hr 11/27/20 11/27/20 11/27/20 14:50 15:45 18:14 WBC RBC Hgb Hct MCV MCH MCHC RDW Std Deviation RDW Coeff of Segundo Plt Count MPV Immature Gran % (Auto) Neut % (Auto) Lymph % (Auto) [place] % (Auto) Eos % (Auto) Baso % (Auto) Absolute Neuts (auto) Absolute Lymphs (auto) Nucleated RBC % Sodium Cancelled 138 Potassium Cancelled 4.6 Chloride Cancelled 104 Carbon Dioxide Cancelled 30.0 Anion Gap Cancelled 4 L BUN Cancelled 10 Creatinine Cancelled 0.81 Estim Creat Clear Calc Cancelled 62.23 Est GFR (MDRD) Af Amer Cancelled 91 Est GFR (MDRD) Non-Af Cancelled 75 BUN/Creatinine Ratio Cancelled 12.4 Glucose Cancelled 115 H Calcium Cancelled 9.0 Total Bilirubin AST ALT Alkaline Phosphatase Troponin I Cancelled < 0.015 Total Protein Albumin Globulin Albumin/Globulin Ratio Triglycerides Cholesterol LDL Cholesterol VLDL Cholesterol HDL Cholesterol POC Glucose 130 H 11/27/20 11/27/20 11/27/20 19:09 21:47 22:24 WBC RBC Hgb Hct MCV MCH MCHC RDW Std Deviation RDW Coeff of Segundo Plt Count MPV Immature Gran % (Auto) Neut % (Auto) Lymph % (Auto) [place] % (Auto) Eos % (Auto) Baso % (Auto) Absolute Neuts (auto) Absolute Lymphs (auto) Nucleated RBC % Sodium Potassium Chloride Carbon Dioxide Anion Gap BUN Creatinine Estim Creat Clear Calc Est GFR (MDRD) Af Amer Est GFR (MDRD) Non-Af BUN/Creatinine Ratio Glucose Calcium Total Bilirubin AST ALT Alkaline Phosphatase Troponin I < 0.015 < 0.015 Total Protein Albumin Globulin Albumin/Globulin Ratio Triglycerides Cholesterol LDL Cholesterol VLDL Cholesterol HDL Cholesterol POC Glucose 152 H 11/28/20 11/28/20 11/28/20 05:24 05:24 06:09 WBC 5.8 RBC 4.75 Hgb 13.6 Hct 42.9 MCV 90.3 MCH 28.6 MCHC 31.7 L RDW Std Deviation 42.5 RDW Coeff of Segundo 12.8 Plt Count 215 MPV 9.6 Immature Gran % (Auto) 0.500 Neut % (Auto) 63.0 Lymph % (Auto) 23.8 [place] % (Auto) 8.4 Eos % (Auto) 3.3 Baso % (Auto) 1.0 Absolute Neuts (auto) 3.7 Absolute Lymphs (auto) 1.39 Nucleated RBC % 0 Sodium 139 Potassium 4.2 Chloride 105 Carbon Dioxide 28.0 Anion Gap 6 BUN 10 Creatinine 0.78 Estim Creat Clear Calc 50.41 Est GFR (MDRD) Af Amer 94 Est GFR (MDRD) Non-Af 78 BUN/Creatinine Ratio 12.8 Glucose 153 H Calcium 8.5 Total Bilirubin 0.40 AST 16 ALT 20 Alkaline Phosphatase 87 Troponin I Total Protein 6.3 L Albumin 3.4 Globulin 2.9 Albumin/Globulin Ratio 1.2 Triglycerides 288 H Cholesterol 177 LDL Cholesterol 84 VLDL Cholesterol 58 H HDL Cholesterol 35 L POC Glucose 153 H Radiography Diagnostic Testing: Radiology Impression Chest X-Ray 11/27/20 13:56 IMPRESSION: No acute pulmonary process Electronically Signed: Júnior Mata MD at 14:18 EDT , Service support , D/C Instructions Discharge Diet: No restrictions Discharge Activity: Return to Normal Activity Please Follow Up With: Primary care provider When: Within the next two weeks. Discharge Plan Admission Admit Date/Time: 11/27/20 17:03 Primary Reason for Your Visit: Chest pain Attending Provider: Mikie Peña Primary Care Provider: Vy Bland Instructions Patient Instructions: ED Chest Pain, Noncardiac Discharge Orders/Prescriptions Prescriptions: New pantoprazole [Protonix] 20 mg tablet,delayed release (DR/EC) 20 mg PO DAILY Qty: 30 RF: 0 Continued aspirin [Adult Low Dose Aspirin] 81 mg tablet,delayed release (DR/EC) 81 mg PO DAILY RF: 0 dextroamphetamine 15 mg capsule, extended release 15 mg PO DAILY RF: 0 balsalazide 750 mg capsule 2,250 mg PO BID RF: 0 metformin 500 mg tablet 500 mg PO BID RF: 0 cholecalciferol (vitamin D3) [Vitamin D3] 125 mcg (5,000 unit) Tablet 125 mcg PO DAILY RF: 0 duloxetine 60 mg capsule,delayed release(DR/EC) 60 mg PO DAILY RF: 0 biotin 5,000 mcg Tablet, Sublingual 5,000 mcg SUBLINGUAL DAILY RF: 0 Referrals / Follow Up: Vy Bland DO [Primary Care Provider] - Disposition Disposition (needs filled in before D/C Order can be placed): Home, self care Documented by User: Dr. Mikie Peña DO 11/28/20 15:01 Providers Date of Admission: 11/27/20 Reason For Visit: CHEST PAIN Medications at Discharge Home Medications aspirin 81 mg tablet,delayed release 81 mg PO DAILY 10/24/18 balsalazide 750 mg capsule 2,250 mg PO BID 10/24/18 dextroamphetamine 15 mg capsule,extended release 15 mg PO DAILY 10/24/18 biotin 5,000 mcg SUBLINGUAL DAILY 11/27/20 cholecalciferol (vitamin D3) [Vitamin D3] 125 mcg PO DAILY 11/27/20 duloxetine 60 mg PO DAILY 11/27/20 metformin 500 mg PO BID 11/27/20 pantoprazole [Protonix] 20 mg PO DAILY #30 tab 11/28/20 Hospital Course Operations None Procedures Stress test Summary of Care Provided Minutes Spent on Discharge: 28 Hospital Course: 70-year-old white female presents with chest pain. Patient underwent a cardiac work-up, including stress test. All of which was negative. On exam, patient had reproducible anterior chest wall tenderness. Clear the patient that this is a likely musculoskeletal and would get better with time. Patient be discharged home in stable condition Physical Exam Const alert General Appearance: cooperative Orientation / Consciousness: awake Resp normal respiratory effort and clear to auscultation bilaterally Cardio regular rate, regular rhythm, S1 normal heart sound and S2 normal heart sound GI non-tender and non-distended ABG / Lab / Microbiology Data Result Diagrams: 11/28/20 05:24 11/28/20 05:24 Meaningful Use Info Meaningful Use Diagnoses (Choose all that apply): None applicable Discharge Plan Admission Admit Date/Time: 11/27/20 17:03 Primary Reason for Your Visit: Chest pain Attending Provider: Mikie Peña Primary Care Provider: Vy Bland Instructions Patient Instructions: ED Chest Pain, Noncardiac Discharge Orders/Prescriptions Prescriptions: New pantoprazole [Protonix] 20 mg tablet,delayed release (DR/EC) 20 mg PO DAILY Qty: 30 RF: 0 Continued aspirin [Adult Low Dose Aspirin] 81 mg tablet,delayed release (DR/EC) 81 mg PO DAILY RF: 0 dextroamphetamine 15 mg capsule, extended release 15 mg PO DAILY RF: 0 balsalazide 750 mg capsule 2,250 mg PO BID RF: 0 metformin 500 mg tablet 500 mg PO BID RF: 0 cholecalciferol (vitamin D3) [Vitamin D3] 125 mcg (5,000 unit) Tablet 125 mcg PO DAILY RF: 0 duloxetine 60 mg capsule,delayed release(DR/EC) 60 mg PO DAILY RF: 0 biotin 5,000 mcg Tablet, Sublingual 5,000 mcg SUBLINGUAL DAILY RF: 0 Referrals / Follow Up: Vy Bland DO [Primary Care Provider] - Disposition Disposition (needs filled in before D/C Order can be placed): Home, self care Visit Charges OBSV E&M: 51311 Observation care discharge
--- NOTE | 2020-11-28 15:08 | STRESSREP ---
Stress Test Report Treadmill myocardial perfusion stress test; Indication: 70-year-old patient presented to the emergency department at [facility] with chief complaint of chest pain. Patient have history of diabetes mellitus, ulcerative colitis, TIA and other medical problem including sleep apnea, osteoarthritis and depression Patient also had a history of TIA. Stress protocol; Patient exercised according to standard Jeison protocol. Exercised for 4 minutes achieving a work level of maximum 5.7 METS, resting heart rate 70 bpm, mono to a maximum heart rate of 140 bpm, this represented 92% of the maximum age-predicted heart rate. Resting blood pressure 138/90 mmHg, mono to a maximum blood pressure of 180/74 mmHg. Exercise stress test was stopped due to symptoms of dyspnea and patient achieving the target heart rate. Myocardial perfusion protocol; 14.9 mCi of technetium 90 9M sestamibi was injected at rest. Patient exercised according to standard Jeison protocol, following maximal stress patient received 45 mCi of technetium 90 9M sestamibi. Stress images were obtained and rest images were reconstructed and compared in the short axis, vertical and horizontal long axis. Gated images were also obtained. Gated SPECT analysis: The gated ejection fraction 68%, wall motion showed normal LV systolic function Conclusion: Negative treadmill sestamibi myocardial perfusion study for reversible myocardial ischemia Limited exercise tolerance Normal LV systolic function. Angelo Nava MD,FACC,[facility]
== END 2020-11-28 10:18 | disposition home or self-care (01) ==
LOC: ED 17:08 → PCU 17:28
PROVIDERS: Admitting Provider Internal Medicine; Emergency Provider Emergency Medicine; PCP Internal Medicine
DX: R07.89 Other chest pain (principal); F32.9 Major depressive disorder, single episode, unspecified; K51.911 Ulcerative colitis, unspecified with rectal bleeding; E11.9 Type 2 diabetes mellitus without complications; R53.83 Other fatigue; G47.33 Obstructive sleep apnea (adult) (pediatric); G47.419 Narcolepsy without cataplexy; Z86.73 Personal history of transient ischemic attack (TIA), and cerebral infarction without residual deficits; Z79.899 Other long term (current) drug therapy; Z79.82 Long term (current) use of aspirin; Z79.84 Long term (current) use of oral hypoglycemic drugs
CPT/HCPCS: 36415; 71045; 78452; 80048; 80053; 80061; 82962; 84484; 85025; 93005; 93017; 96365; 96366; 96372; 99218; 99285; A9500; A4216; G0378

== ENCOUNTER 2021-09-21 10:04 | Outpatient (CLI) | payer MEDICARE, BC, SELFPAY ==
--- NOTE | 2021-09-21 10:06 | BI_ITS ---
MAMMOGRAPHY - BILATERAL SCREENING REASON FOR EXAM: Female, 71 years old. Routine annual screening examination. PERTINENT HISTORY: Non-contributory. TECHNIQUE: Digital bilateral breast hetal (3D mammographic acquisition) in the CC and MLO projections. 2-D mediolateral oblique (MLO) and craniocaudad (CC) views of both breasts were obtained. CAD: Full Field Digital Mammography with Computer Added Detection was performed. COMPARISON: Comparison is made with prior study dated 09/18/2020 and 09/18/2019. FINDINGS: Breast Composition: There are scattered areas of fibroglandular density. There are no dominant masses or suspicious calcifications. Stable 9.4 mm fat-containing nodule in the central lateral portion of the right breast suggestive of an intramammary lymph. A tissue clip marker seen within a small density in the deep inferior medial portion of the left breast. No other significant abnormalities are identified. There has been no significant change since the prior study. BI/SCRN MAMM (CAD)W/HETAL BILAT IMPRESSION: Stable bilateral screening mammogram. Yearly follow-up mammogram recommended. (A) ASSESSMENT CATEGORY: BIRADS Category 2: Benign. A letter regarding these results will be sent to the patient by the facility within 30 days. Approximately 10% of breast cancers are not detected by mammography. A normal mammogram should not delay biopsy of a clinically suspicious abnormality. [id number] Electronically Signed: Kofi Santana MD at 11:19 EDT ,
== END 2021-09-21 23:59 | disposition home or self-care (01) ==
LOC: OPBI 10:04
PROVIDERS: PCP Internal Medicine; Visit Provider Internal Medicine
DX: Z12.31 Encounter for screening mammogram for malignant neoplasm of breast (principal)
CPT/HCPCS: 77063; 77067

== ENCOUNTER 2022-03-02 13:00 | Outpatient (RCR) | payer MEDICARE, BC, SELFPAY ==
--- NOTE | 2022-02-03 13:50 | HP.PTEVAL ---
Patient's Visit Information ANTONELLA DILLON is a 71 year old F referred to Physical Therapy by Dr. 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 Date of Evaluation: 02/03/22 Physical Therapist: Daphne Fried DPT - Visit Plan Frequency: 2x /Week Duration: 4 Weeks Plan: Focus on LE and core strength/stabilization. Ultrasound as modality on hip PRN. HEP Given IE: TA Contraction, Bridge, Hip abd with OTB, hip add with pillow, piriformis stretch supine - Subjective Patient reports cleaning out her garage a few months back- pushing her refrig and for about a month she has increased glut pain on the right. Saw MD who told her its the ITBand and gave her a stretch which has eased it. She has noticed walking and going up the stairs with that leg. Eases: sitting. If she lays on it its comfortable but if she lays on the other side it bothers her. Pain is located in the right glut and greater trochanter- Radiates to the ITBand- not past the knee. She feels compensation and her knee or other hip will hurt. Worst: 8/10 Agg: going up steps, walking distances. Eases: sitting down Best: 0/10. Describes the pain as dull and achy. Does have some N/T in the same area. She had Back surgery in lower lumbar- Dr. Ewing- no hardware- ruptured disc. She normally only has issues when she overdoes things- she does get a tired feeling sometimes but no pain. She is pretty active with household stuff- no exercise routine. No x-rays or MRI. Sleep: not disturbed- all positions- CPAP. Sees Hilary for massage- about 1x a month. PMHx: see list in chart from 11/27/20 no changes noted. - Objective Posture: FH, RS can correct but does not maintain. Gait: increased valgus at the knee- decreased stance on the right LE with poor heel/toe pattern. Increased pelvic translation. HR/TR: able without pain. Stairs: asc/desc 8 non recip with 2 HR and reports severe pain when attempted recip. SLS: weight shift but reports pain instantly and is unable to SLS. ROM: WFL in all planes of the lumbar spine and hip. Strength: Core: fair minus, Hip: Flexion: 3+/5, Abd: 3/5, Add: 4+/5, Extn: 4/5, IR: 4-/5, ER:4-/5, Knee: 5/5, Ankle: 5/5. Flex: HS: moderate, Gastroc: moderate, Piriformis: moderate - Special Tests R Hip YOGI - Intraarticular Pathology: Negative R Hip FADDIR - Labrum: Negative R Hip Impingement Provocation - Labrum: Negative R Hip Trendelenberg - Glut Medius: Positive R Hip Vipul - IT Band: Positive - Balance/Special Test Scores Lower Extremity Functional Score: 35 - Goals Goal 1:: Patient will be I with HEP and progression Goal Time Frame: 4-6 Weeks Goal 2:: Patient will ambulate >300 feet with a normalized gait pattern Goal Time Frame: 4-6 Weeks Goal 3:: Patient will asc/desc 8 stairs recip with 1 HR Goal Time Frame: 4-6 Weeks Goal 4:: Patient will maintain proper posture t/o tx session to demo increased core s.s Goal Time Frame: 4-6 Weeks Goal 5:: Patient will report 80% improvement Goal Time Frame: 4-6 Weeks - Rehabilitation Potential Physical Therapy Diagnosis: Patient presents with hypomobility- she has decreased LE and core strength/stabilization, flex and muscular endurance leading to poor posture, abnormal gait pattern and decreased ability to perform ADL's. Rehabilitation Potential: Fair - Anticipated Interventions Patient/Client Instruction: Educate patient on: Benefits of Fitness Program Therapeutic Exercise to Include: Strength training, Endurance training, Balance training, Coordination, Agility training, Body mechanics, Postural training, Flexibilty training, Gait and locomotor training, Neuromotor development, Dynamic Lumbar Stabilization, Scapular Strength/Stabilization For the Purpose of:: To improve muscle performance and motor function TENS: Yes Cryotherapy (ice pack, ice massage): Yes Thermo therapy (hot pack): Yes Ultrasound (thermal/non thermal): Yes Thank you for the opportunity to evaluate your patient. For Medicare and Medicare HMO plans, please review the plan of care and approve it. It will need to be FAXED BACK to us at [phone] for Medicare purposes. For Medicare only, by signing this I certify the plan of care. Please let me know if there are questions or concerns regarding this plan of care. Physician Signature: Date:
--- NOTE | 2022-03-02 13:47 | HP.PTDCSUM ---
It has been my pleasure to treat ANTONELLA DILLON referred by Dr. Vy Bland DO, with the diagnosis of ITBand Syndrome for a total of 7 visit(s). Discharge Date: Please see the following information for a summary of their discharge status. Subjective: Patient reports that its improving- just a little ouch. She started going up/down the stairs recip. She would like to continue with her HEP. RLE Pain Intensity (Out of 10): 0 % Improvement: 80 Objective/Function: Posture: Fair throughout. Gait: mild valgus at the knee HR/TR: able without pain. Stairs: asc/desc 8 recip with 2 HR SLS: 10 sec. ROM: WFL in all planes of the lumbar spine and hip. Strength: Core: fair minus, Hip: Flexion: 4+/5, Abd: 4+/5, Add: 4+/5, Extn: 4+/5, IR: 4/5, ER:4/5, Knee: 5/5, Ankle: 5/5. Flex: HS: moderate, Gastroc: moderate, Piriformis: moderate. - Special Tests. R Hip YOGI - Intraarticular Pathology: Negative. R Hip FADDIR - Labrum: Negative. R Hip Impingement Provocation - Labrum: Negative. R Hip Trendelenberg - Glut Medius: Positive. R Hip Vipul - IT Band: Positive Goal 1:: Patient will be I with HEP and progression Goal Progress: Goal Met Goal 2:: Patient will ambulate >300 feet with a normalized gait pattern Goal Progress: Goal Met Goal 3:: Patient will asc/desc 8 stairs recip with 1 HR Goal Progress: Goal Met Goal 4:: Patient will maintain proper posture t/o tx session to demo increased core s.s Goal Progress: Progressing Goal 5:: Patient will report 80% improvement Goal Progress: Goal Met Plan: Discharge to HEP- encouraged a fitness membership If there are questions or concerns regarding this patient's physical therapy, please feel free to call me at [phone]. Thank you for the referral of this patient. Sincerely, Daphne Fried, DPT Balance/Gait/Functional tests - Balance/Special Test Scores Lower Extremity Functional Score: 50
== END 2022-03-02 13:53 | disposition home or self-care (01) ==
LOC: PT 13:00
PROVIDERS: PCP Internal Medicine; Referring Provider Internal Medicine; Visit Provider Internal Medicine
DX: M70.60 Trochanteric bursitis, unspecified hip (principal); M76.31 Iliotibial band syndrome, right leg; M62.838 Other muscle spasm
CPT/HCPCS: 97110; 97162; 97164

== ENCOUNTER → 2022-09-22 | Outpatient (CLI) | payer MEDICARE, BC, SELFPAY ==
--- NOTE | 2022-09-22 10:30 | BI_ITS ---
MAMMOGRAPHY - BILATERAL SCREENING REASON FOR EXAM: Female, 72 years old. Routine annual screening examination. PERTINENT HISTORY: Non-contributory. TECHNIQUE: Digital bilateral breast hetal (3D mammographic acquisition) in the CC and MLO projections. 2-D mediolateral oblique (MLO) and craniocaudad (CC) views of both breasts were obtained. CAD: Full Field Digital Mammography with Computer Added Detection was performed. COMPARISON: Comparison is made with prior study September 21, 2021 and September 18, 2020. FINDINGS: Breast Composition: There are scattered areas of fibroglandular density. There are no dominant masses or suspicious calcifications. A tissue clip marker is once again seen in the tiny density in the deep inferior medial portion of the left breast. Stable benign-appearing bilateral axillary lymph nodes. No other significant abnormalities are identified. There has been no significant change since the prior study. BI/SCRN MAMM (CAD)W/HETAL BILAT IMPRESSION: Stable bilateral screening mammogram. Yearly follow-up mammogram recommended. (A) ASSESSMENT CATEGORY: BIRADS Category 2: Benign. A letter regarding these results will be sent to the patient by the facility within 30 days. Approximately 10% of breast cancers are not detected by mammography. A normal mammogram should not delay biopsy of a clinically suspicious abnormality. [id number] Electronically Signed: Kofi Santana MD at 12:04 EDT ,
== END | disposition home or self-care (01) ==
LOC: OPBI 10:27
PROVIDERS: PCP Internal Medicine; Referring Provider Internal Medicine; Visit Provider Internal Medicine
DX: Z12.31 Encounter for screening mammogram for malignant neoplasm of breast (principal)
CPT/HCPCS: 77063; 77067

== ENCOUNTER → 2022-11-16 | Outpatient (CLI) | payer MEDICARE, BC, SELFPAY ==
[2022-11-16 12:22] LABS: Hematocrit 47.7 % (37-47); Mean Corp Hgb Conc 31.4 g/dL (32-36); Mean Corpuscular Hgb 28.2 pg (27.0-32.0); Mean Corpuscular Volume 89.8 fL (81-99); Mean Platelet Vol. 10.6 fl (6.2-12.0); Platelet Count 171 K/mm3 (150-450); RBC Distribution Width CV 12.9 % (11.6-14.6); RBC Distribution Width SD 42.2 fl (35.1-43.9); Red Blood Count 5.31 M/mm3 (4.2-5.4); White Blood Count 4.5 K/mm3 (4.4-11.0)
[2022-11-16 13:39] LABS: BUN 17 mg/dL (7-18); Creatinine, Serum 0.75 mg/dL (0.55-1.02); EST Glomerular Filtration Rate 81 mL/min (>60); Glucose 137 mg/dL (74-106)
[2022-11-16 13:40] LABS: ALB/GLOB Ratio 1.2 RATIO (0.9-2.4); AST(SGOT) 20 U/L (15-37); Alanine Aminotransfer ALT/SGPT 22 U/L (13-56); Albumin, Serum 3.7 g/dL (3.2-5.0); Alkaline Phosphatase 71 U/L (45-117); Anion Gap 3 (5-15); BUN/Creat Ratio 22.7 RATIO (10-20); Calcium,Total 9.3 mg/dL (8.5-10.1); Chloride 106 mmol/L (98-107); Cholesterol 171 mg/dL (200); Est Glom Filt Rate - Afr Amer 98 mL/min (>60); Ferritin 57 ng/mL (8-252); High Density Lipoprotein 52 mg/dL; Iron 99 ug/dL (50-170); Iron Binding Capacity,Total 360 ug/dL (250-450); Magnesium 2.1 mg/dL (1.6-2.6); PERCENT IRON SATURATION 27.5 % (15.0-55.0); Potassium 4.5 mmol/L (3.5-5.1); Protein, Total 6.7 g/dL (6.4-8.2); Sodium Level 138 mmol/L (136-145); Thyroid Stim Hormone (TSH) 1.18 uIU/mL (0.358-3.74); Triglycerides 121 mg/dL; Very Low Density Lipoprotein 24 mg/dL (5-40)
[2022-11-16 13:49] LABS: PTHIN 28.3 pg/mL (18.4-80.1)
[2022-11-16 13:56] LABS: Vitamin B12 450 pg/mL (211-911)
[2022-11-19 16:09] LABS: Vitamin B1, Thiamine 201.3 nmol/L (66.5-200.0); Zinc, Plasma or Serum 107 ug/dL (44-115)
== END | disposition home or self-care (01) ==
LOC: MTLAB 09:27
PROVIDERS: PCP Internal Medicine
DX: K21.9 Gastro-esophageal reflux disease without esophagitis (principal); E11.9 Type 2 diabetes mellitus without complications; Z98.84 Bariatric surgery status; E55.9 Vitamin D deficiency, unspecified; E78.5 Hyperlipidemia, unspecified; G47.33 Obstructive sleep apnea (adult) (pediatric); D50.9 Iron deficiency anemia, unspecified
CPT/HCPCS: 36415; 80053; 80061; 82306; 82607; 82728; 82746; 83036; 83540; 83550; 83735; 83970; 84425; 84443; 84630; 85027

== ENCOUNTER → 2023-02-07 | Outpatient (CLI) | payer MEDICARE, BC, SELFPAY ==
[2023-02-07 12:10] LABS: Hematocrit 48.1 % (37-47); Mean Corp Hgb Conc 31.2 g/dL (32-36); Mean Corpuscular Hgb 28.5 pg (27.0-32.0); Mean Corpuscular Volume 91.4 fL (81-99); Mean Platelet Vol. 10.3 fl (6.2-12.0); Platelet Count 167 K/mm3 (150-450); RBC Distribution Width CV 12.9 % (11.6-14.6); RBC Distribution Width SD 43.9 fl (35.1-43.9); Red Blood Count 5.26 M/mm3 (4.2-5.4); White Blood Count 4.4 K/mm3 (4.4-11.0)
[2023-02-07 12:48] LABS: PTHIN 27.2 pg/mL (18.4-80.1)
[2023-02-07 12:50] LABS: Vitamin B12 439 pg/mL (211-911); Vitamin D,25 Hydroxy 92.2 ng/mL
[2023-02-07 13:04] LABS: Hemoglobin A1c 5.8 % (3.8-5.6)
[2023-02-07 13:29] LABS: AST(SGOT) 16 U/L (15-37); Alanine Aminotransfer ALT/SGPT 17 U/L (13-56); Albumin, Serum 3.4 g/dL (3.2-5.0); Alkaline Phosphatase 77 U/L (45-117); Anion Gap 3 (5-15); BUN 16 mg/dL (7-18); BUN/Creat Ratio 20.9 RATIO (10-20); Chloride 103 mmol/L (98-107); Cholesterol 159 mg/dL (200); Creatinine, Serum 0.76 mg/dL (0.55-1.02); EST Glomerular Filtration Rate 79 mL/min (>60); Est Glom Filt Rate - Afr Amer 96 mL/min (>60); Ferritin 68 ng/mL (8-252); Globulin 3.4 g/dL (2.2-4.2); Glucose 118 mg/dL (74-106); High Density Lipoprotein 50 mg/dL; Iron 119 ug/dL (50-170); Iron Binding Capacity,Total 411 ug/dL (250-450); Magnesium 2.2 mg/dL (1.6-2.6); Potassium 4.4 mmol/L (3.5-5.1); Protein, Total 6.8 g/dL (6.4-8.2); Sodium Level 137 mmol/L (136-145); Thyroid Stim Hormone (TSH) 1.74 uIU/mL (0.358-3.74); Triglycerides 137 mg/dL; Very Low Density Lipoprotein 27 mg/dL (5-40)
[2023-02-10 05:07] LABS: Vitamin B1, Thiamine 157.1 nmol/L (66.5-200.0); Zinc, Plasma or Serum 118 ug/dL (44-115)
== END | disposition home or self-care (01) ==
LOC: MTLAB 10:27
PROVIDERS: PCP Internal Medicine
DX: K21.9 Gastro-esophageal reflux disease without esophagitis (principal); E11.9 Type 2 diabetes mellitus without complications; E55.9 Vitamin D deficiency, unspecified; E78.5 Hyperlipidemia, unspecified; G47.33 Obstructive sleep apnea (adult) (pediatric); D50.9 Iron deficiency anemia, unspecified; Z98.84 Bariatric surgery status
CPT/HCPCS: 36415; 80053; 80061; 82306; 82607; 82728; 82746; 83036; 83540; 83550; 83735; 83970; 84425; 84443; 84630; 85027

== ENCOUNTER → 2023-08-15 | Outpatient (CLI) | payer MEDICARE, BC, SELFPAY ==
[2023-08-15 13:02] LABS: Vitamin B12 392 pg/mL (211-911); Vitamin D,25 Hydroxy 72.8 ng/mL
[2023-08-15 13:24] LABS: PTHIN 52.3 pg/mL (18.4-80.1)
[2023-08-15 14:25] LABS: ALB/GLOB Ratio 1.2 RATIO (0.9-2.4); AST(SGOT) 17 U/L (15-37); Alanine Aminotransfer ALT/SGPT 22 U/L (13-56); Albumin, Serum 3.6 g/dL (3.2-5.0); Alkaline Phosphatase 76 U/L (45-117); Anion Gap 6 (5-15); BUN 19 mg/dL (7-18); BUN/Creat Ratio 26.6 RATIO (10-20); Calcium,Total 8.9 mg/dL (8.5-10.1); Chloride 106 mmol/L (98-107); Cholesterol 174 mg/dL (200); Creatinine, Serum 0.71 mg/dL (0.55-1.02); EST Glomerular Filtration Rate 86 mL/min (>60); Est Glom Filt Rate - Afr Amer 104 mL/min (>60); Ferritin 48 ng/mL (8-252); Globulin 3.1 g/dL (2.2-4.2); Glucose 131 mg/dL (74-106); High Density Lipoprotein 53 mg/dL; Iron 103 ug/dL (50-170); Iron Binding Capacity,Total 361 ug/dL (250-450); PERCENT IRON SATURATION 28.5 % (15.0-55.0); Potassium 4.6 mmol/L (3.5-5.1); Protein, Total 6.7 g/dL (6.4-8.2); Sodium Level 139 mmol/L (136-145); Thyroid Stim Hormone (TSH) 0.91 uIU/mL (0.358-3.74); Triglycerides 161 mg/dL; Very Low Density Lipoprotein 32 mg/dL (5-40)
[2023-08-15 14:39] LABS: Hemoglobin A1c 5.9 % (3.8-5.6)
[2023-08-23 19:07] LABS: Vitamin B1, Thiamine 138.6 nmol/L (66.5-200.0); Zinc, Plasma or Serum 68 ug/dL (44-115)
== END | disposition home or self-care (01) ==
LOC: MTLAB 09:43
PROVIDERS: PCP Internal Medicine
DX: K21.9 Gastro-esophageal reflux disease without esophagitis (principal); E66.01 Morbid (severe) obesity due to excess calories; E11.9 Type 2 diabetes mellitus without complications; E55.9 Vitamin D deficiency, unspecified; E78.5 Hyperlipidemia, unspecified; G47.33 Obstructive sleep apnea (adult) (pediatric); D50.9 Iron deficiency anemia, unspecified; Z98.84 Bariatric surgery status; G47.419 Narcolepsy without cataplexy; E61.8 Deficiency of other specified nutrient elements
CPT/HCPCS: 36415; 80053; 80061; 82306; 82607; 82728; 82746; 83036; 83540; 83550; 83735; 83970; 84425; 84443; 84630

== ENCOUNTER → 2024-01-19 | Outpatient (CLI) | payer MEDICARE, BC, SELFPAY ==
--- NOTE | 2024-01-19 10:22 | BI_ITS ---
MAMMOGRAPHY - BILATERAL SCREENING REASON FOR EXAM: Female, 73 years old. Routine annual screening examination. PERTINENT HISTORY: Non-contributory. Prior left ultrasound-guided breast biopsy. TECHNIQUE: Digital bilateral breast hetal (3D mammographic acquisition) in the CC and MLO projections. 2-D mediolateral oblique (MLO) and craniocaudad (CC) views of both breasts were obtained. CAD: Full Field Digital Mammography with Computer Added Detection was performed. COMPARISON: Comparison is made with prior study September 22, 2022 and September 21, 2021. FINDINGS: Breast Composition: There are scattered areas of fibroglandular density. There are no dominant masses or suspicious calcifications. A tissue clip marker is once again seen in the tiny density in the deep medial portion of the left breast. No other significant abnormalities are identified. There has been no significant change since the prior study. BI/SCRN MAMM (CAD)W/HETAL BILAT IMPRESSION: Stable bilateral screening mammogram. Yearly follow-up mammogram recommended. (A) ASSESSMENT CATEGORY: BIRADS Category 2: Benign. A letter regarding these results will be sent to the patient by the facility within 30 days. Approximately 10% of breast cancers are not detected by mammography. A normal mammogram should not delay biopsy of a clinically suspicious abnormality. [id number] Electronically Signed: Kofi Santana MD at 13:25 EDT ,
== END | disposition home or self-care (01) ==
LOC: OPBI 10:22
PROVIDERS: PCP Internal Medicine; Referring Provider Internal Medicine; Visit Provider Internal Medicine
DX: Z12.31 Encounter for screening mammogram for malignant neoplasm of breast (principal)
CPT/HCPCS: 77063; 77067

== ENCOUNTER 2024-04-03 11:00 | Outpatient (RCR) | payer MEDICARE, BC, SELFPAY ==
--- NOTE | 2024-03-22 11:54 | HP.PTEVAL ---
Patient's Visit Information Visit Information Visit Information: ANTONELLA DILLON is a 74 year old F referred to Physical Therapy by Dr. Vy Bland DO with a diagnosis of L limited ROM/pain/supraspinatus tendonitis. Date of Evaluation: 03/22/24 Physical Therapist: EMILY Marie Visit Plan Frequency: 2x /Week Duration: 2 Months Plan: 2X/ week for 8 weeks for L shoulder PROM, AAROM, AROM, scapular and postural strength, RC strength, with HEP HEP: supine wand flex, standing wand abd, standing IR and ER, sidebending stretch of neck Subjective Subjective: Pt has no idea how she hurt her shoulder. She thought it was just arthritis. She can not reach behind her head with her L shoulder. It does not hurt everyday. Sometimes it will hurt if she lifts something too heavy. She gets pain randomly down the lateral side of her L arm. She takes a Tylenol and ice and normally within a period of time the pain goes away. This week she was helping her sis in law move and it is a little tender today. She has some L sided shoulder/neck pain. She is R handed. She has no N&T and she has no YBARRA. She is a side sleeper and it hurts when she lays on that side for awhile. She sees [facility] next week. Pain L shoulder pain: Pain Intensity (Out of 10): 3 Objective Objective: R handed UE AROM: R shoulder flex, abd full ROM, IR to L2, ER 45 L shoulder Flex 110, ABD 110, IR PSIS, ER 15 UE MMT: R shoulder flex 8.2 and L 6.6 R shoulder ABD 9.5 and L 5.6 R shoulder ER 10.4 and L 6.5 R shoulder IR 11.1 and L 9.4 L shoulder PROM: tight and tender at all end ranges. Balance/Special Test Scores Quick DASH Score: 40.9075 Goals Goal 1:: I HEP Goal Time Frame: 6-8 Weeks Goal 2:: Increase L shoulder AROM (at the time of the eval: R shoulder flex, abd full ROM, IR to L2, ER 45 L shoulder Flex 110, ABD 110, IR PSIS, ER 15) Goal Time Frame: 6-8 Weeks Goal 3:: Decrease tightness in L trap with daily activities and UE AROM Goal Time Frame: 6-8 Weeks Goal 4:: Be able to use her L arm without having pain 80% of the time Goal Time Frame: 6-8 Weeks Rehabilitation Potential Rehabilitation Potential: Good Anticipated Interventions Patient/Client Instruction: Educate patient on: Condition and Plan of Care For the Purpose of:: To decrease pain, To increase ROM, To improve nutrient delivery to tissue, To improve muscle performance and motor function, To improve ability to perform ADL's, To increase tolerance to activity/condition/position, To improve performance and independence with ADL's, To decrease level of supervision to perform tasks, To improve ability of physical actions for home/community/work/leisure, To improve health of tissue, To decrease soft tissue restriction and To increase flexibility/ROM Therapeutic Exercise to Include: Strength training, Postural training, Flexibilty training, Gait and locomotor training, Neuromotor development, Passive ROM, Active ROM and Scapular Strength/Stabilization For the Purpose of:: To decrease pain, To increase ROM, To improve nutrient delivery to tissue, To improve muscle performance and motor function, To improve ability to perform ADL's, To increase tolerance to activity/condition/position, To improve performance and independence with ADL's, To decrease level of supervision to perform tasks, To improve ability of physical actions for home/community/work/leisure, To improve health of tissue, To decrease soft tissue restriction and To increase flexibility/ROM Text: Thank you for the opportunity to evaluate your patient. For Medicare and Medicare HMO plans, please review the plan of care and approve it. It will need to be FAXED BACK to us at [phone] for Medicare purposes. For Medicare only, by signing this I certify the plan of care. Please let me know if there are questions or concerns regarding this plan of care. Physician Signature: Date:
--- NOTE | 2024-04-09 11:19 | HP.PT.NRP ---
Patient Information Patient Information: ANTONELLA DILLON was seen in my office for initial evaluation on 03/22/24. The following Plan of Care was established for this patient: POC Established Initial Frequency: 2x /Week Initial Duration: 2 Months Anticipated Interventions Patient/Client Instruction: Educate patient on: Condition and Plan of Care For the Purpose of:: To decrease pain, To increase ROM, To improve nutrient delivery to tissue, To improve muscle performance and motor function, To improve ability to perform ADL's, To increase tolerance to activity/condition/position, To improve performance and independence with ADL's, To decrease level of supervision to perform tasks, To improve ability of physical actions for home/community/work/leisure, To improve health of tissue, To decrease soft tissue restriction and To increase flexibility/ROM Therapeutic Exercise to Include: Strength training, Postural training, Flexibilty training, Gait and locomotor training, Neuromotor development, Passive ROM, Active ROM and Scapular Strength/Stabilization For the Purpose of:: To decrease pain, To increase ROM, To improve nutrient delivery to tissue, To improve muscle performance and motor function, To improve ability to perform ADL's, To increase tolerance to activity/condition/position, To improve performance and independence with ADL's, To decrease level of supervision to perform tasks, To improve ability of physical actions for home/community/work/leisure, To improve health of tissue, To decrease soft tissue restriction and To increase flexibility/ROM Last Seen Last Seen: This patient was last seen in our office . Pertinent comments regarding their Physical therapy will appear below: At this point I will be discontinuing this patient from physical therapy. I would be happy to see this patient again in the future if found appropriate by the physician. Thank you! Mary He, EMILY Balance/Gait/Functional tests Balance/Special Test Scores Quick DASH Score: 29.5455
== END 2024-04-03 19:00 | disposition home or self-care (01) ==
LOC: PT 11:00
PROVIDERS: PCP Internal Medicine; Visit Provider Internal Medicine
DX: M25.512 Pain in left shoulder (principal)
CPT/HCPCS: 97110; 97161

== ENCOUNTER → 2025-01-22 | Outpatient (CLI) | payer MEDICARE, BC, SELFPAY ==
--- NOTE | 2025-01-22 09:54 | BI_ITS ---
EXAM: SCRN MAMM (CAD)W/HETAL BILAT DATE: 01/22/2025 CLINICAL HISTORY: F, Age 74 y/o , POST MENOPAUSAL TECHNIQUE: SCRN MAMM (CAD)W/HETAL BILAT COMPARISON: Prior exam(s) were compared FINDINGS: TISSUE DENSITY: The breasts are heterogeneously dense, which may obscure small masses. Bilateral Breast Mammographic Findings: No suspicious masses, calcifications or other abnormalities are identified. BI/SCRN MAMM (CAD)W/HETAL BILAT IMPRESSION: No mammographic evidence of malignancy in either breast OVERALL FINAL ASSESSMENT BI-RADS 1: NEGATIVE. RECOMMENDATION: Routine annual follow-up in 1 Year A letter with findings and recommendations will be mailed to the patient. Reading Location: [id number]
--- NOTE | 2025-01-22 09:57 | BD_ITS ---
PROCEDURE: DEXA BONE DENSITY STUDY 01/22/2025 REASON FOR EXAM: F, age 74 y/o . TECHNIQUE: DEXA BONE DENSITY STUDY COMPARISON: None FINDINGS: BMD and T-SCORES Lumbar spine: 1.307 g/cm2, T-score 2.3 Levels: L2 and L3 Left femoral neck: 0.822 g/cm2, T-score -0.2 Femoral neck comparison data not recommended for monitoring change. Left total hip: 1.008 g/cm2, T-score 0.5 Right femoral neck: 0.856 g/cm2, T-score 0.1 Femoral neck comparison data not recommended for monitoring change. Right total hip: 1.074 g/cm2, T-score 1.1 The World Health Organization has defined the following categories based on bone density: Normal bone density: T-score equal to or greater than -1.0 Osteopenia: T-score between -1.0 and -2.5 Osteoporosis: T-score equal to or less than -2.5 BD/Dexa Bone Density Study IMPRESSION: Normal bone mineral density. Reading Location: [id number]
== END | disposition home or self-care (01) ==
LOC: OPBD 09:53
PROVIDERS: PCP Internal Medicine; Referring Provider Internal Medicine; Visit Provider Internal Medicine
DX: Z12.31 Encounter for screening mammogram for malignant neoplasm of breast (principal); Z78.0 Asymptomatic menopausal state
CPT/HCPCS: 77063; 77067; 77080

== ENCOUNTER → 2025-03-05 | Outpatient (CLI) | payer MEDICARE, BC, SELFPAY ==
[2025-03-05 12:43] LABS: Hematocrit 43.3 % (37-47); Hemoglobin 14.3 g/dL (12.0-15.0); Immature Granulocytes Count 0.010 X10^3/uL (0.0-0.0); Mean Corp Hgb Conc 33.0 g/dL (32-36); Mean Corpuscular Volume 87.1 fL (81-99); Mean Platelet Vol. 10.1 fl (6.2-12.0); NRBC Flagged by Analyzer 0 % (0-5); Platelet Count 202 K/mm3 (150-450); RBC Distribution Width CV 12.9 % (11.6-14.6); RBC Distribution Width SD 41.1 fl (35.1-43.9); Red Blood Count 4.97 M/mm3 (4.2-5.4); White Blood Count 4.9 K/mm3 (4.4-11.0)
[2025-03-05 13:26] LABS: AST(SGOT) 22 U/L (<=31); Alanine Aminotransfer ALT/SGPT 16 U/L (<=34); Albumin, Serum 4.2 g/dL (3.4-4.8); Alkaline Phosphatase 90 U/L (35-104); Anion Gap 11 (5-15); BUN 15 mg/dL (4-19); BUN/Creat Ratio 19.7 RATIO (10-20); Calcium,Total 9.6 mg/dL (7.6-11.0); Carbon Dioxide 25.7 mmol/L (21.0-32.0); Chloride 101 mmol/L (98-108); Cholesterol 186 mg/dL (<=200); Globulin 2.6 g/dL (2.2-4.2); Glucose 156 mg/dL (70-99); Low Density Lipoprotein Calc. 100 mg/dL; Potassium 4.5 mmol/L (3.3-5.1); Triglycerides 164 mg/dL; Very Low Density Lipoprotein 33 mg/dL (5-40); Vitamin D,25 Hydroxy 90.4 ng/mL (30-100); cholesterol:hdl ratio screen 3.52
== END | disposition home or self-care (01) ==
LOC: MTLAB 10:20
PROVIDERS: PCP Internal Medicine; Referring Provider Internal Medicine; Visit Provider Internal Medicine
DX: E11.9 Type 2 diabetes mellitus without complications (principal); E55.9 Vitamin D deficiency, unspecified
CPT/HCPCS: 36415; 80053; 80061; 81001; 82043; 82306; 82570; 84443; 85025; 87086

== ENCOUNTER 2025-03-06 09:24 | Outpatient (CLI) | payer MEDICARE, BC, SELFPAY ==
[2025-03-06 10:06] LABS: Mucous, Urine 0 SEEN /hpf (<or=2+); Red Blood Cells-Urine 0 SEEN /hpf (0-5)
[2025-03-06 10:58] LABS: Color, Urine Yellow (Yellow); Glucose, Dipstick Normal (Normal); Ketone-Dipstick Negative (Negative); Leukocyte Esterase-Dipstick Negative /ul (Negative); Nitrite-Dipstick Negative (Negative); Occult Blood-Urine Negative /ul (Negative); Protein-Dipstick 30 mg/dl (Negative); Specific Gravity, Urine 1.020 (1.002-1.030); Urine Bilirubin Dipstick Negative (Negative)
[2025-03-06 11:14] LABS: Calcium Oxalate Crystals Ur 2+ /hpf (<or=2+); Squamous Epithelial Cells - UA 0-5 SEEN /hpf (5-10)
[2025-03-06 11:39] LABS: Creatinine, Urine (random) 136.00 mg/dL (28.00-217.00); Microalbumin,Random Urine < 12.0 mg/L (<20 mg/L)
== END 2025-03-06 23:59 | disposition home or self-care (01) ==
LOC: MTLAB 09:26
PROVIDERS: PCP Internal Medicine; Referring Provider Internal Medicine; Visit Provider Internal Medicine
DX: E55.9 Vitamin D deficiency, unspecified (principal); E11.9 Type 2 diabetes mellitus without complications; R80.9 Proteinuria, unspecified
CPT/HCPCS: 81001; 82043; 82570; 87086; 87088

== ENCOUNTER → 2025-03-18 | Outpatient (CLI) | payer MEDICARE, BC, SELFPAY | END | disposition home or self-care (01) | LOC: MTLAB 12:43 | PROVIDERS: PCP Internal Medicine; Referring Provider Internal Medicine; Visit Provider Internal Medicine | DX: E11.9 Type 2 diabetes mellitus without complications (principal) ==